=== PATIENT | male | born 1990 | race Caucasian/White ===

== ENCOUNTER 2017-06-10 18:07 | Inpatient (IN) | payer OTHER ==
[2017-06-10] VITALS (9 sets, daily range): BP systolic 106–177; BP diastolic 62–106; PULSE 78–100; RESP 16–24; TEMP 97.6–99; O2SAT 96–100
[~2017-06-10] VITALS: Ht 182.9 cm; Wt 133.2 kg
--- NOTE | 2017-06-10 18:29 | PD ---
HPI Chief Complaint: OD/ Ingestion Time Seen by Provider: 18:14 Travel History International Travel<30 days: No Contact w/Intl Traveler<30days: No Traveled to known affect area: No History of Present Illness HPI Patient is a 26-year-old male who presents the emergency room with his twin brother for evaluation of suicide attempt. Patient reports that he is very depressed, reports that his is requesting a divorce. Patient reports that he tried to commit suicide yesterday by ingesting 100 tabs of 500 mg acetaminophen. Patient reports that he took is 100 tabs around 10 AM yesterday. Patient reports that today, around 2 PM, he took another 100 tabs of the 500 mg of acetaminophen. After he took these medications, he called his brother as he was not feeling well. Patient reports that he feels nauseous and regrets taking the Tylenol. Patient reports that he does not want to at this time and does want help. Patient denies any history of suicidal attempts in the past, patient denies any use of drugs or alcohol. Patient reports no past medical history. PFSH Past Medical History Medical History: Denies Significant Hx Diminished Hearing: No Past Surgical History Surgical History: No Previous Surgery Social History Alcohol Use: No Tobacco Use: No Substance Use: No Allergies-Medications (Allergen,Severity, Reaction): Coded Allergies: codeine (Verified Allergy, Severe, throat sweling, hallucinations, 06/10/17 ) Reported Meds & Prescriptions Reported Meds & Active Scripts Active No Active Prescriptions or Reported Medications Review of Systems General / Constitutional: No: Fever Eyes: No: Visual changes HENT: No: Headaches Cardiovascular: No: Chest Pain or Discomfort Respiratory: No: Shortness of Breath Gastrointestinal: No: Abdominal Pain Genitourinary: No: Dysuria Musculoskeletal: No: Pain Skin: No Rash Neurologic: No: Weakness Psychiatric: Positive: Depression, Suicidal Ideations, No: Substance Abuse, Homicidal Ideation Endocrine: No: Polydipsia Hematologic/Lymphatic: No: Easy Bruising Physical Exam Narrative GENERAL: Moderate distress SKIN: Focused skin assessment warm/dry. HEAD: Atraumatic. Normocephalic. EYES: Pupils equal and round. No scleral icterus. No injection or drainage. ENT: No nasal bleeding or discharge. Mucous membranes pink and moist. NECK: Trachea midline. No JVD. CARDIOVASCULAR: Regular rate and rhythm. No murmur appreciated. RESPIRATORY: No accessory muscle use. Clear to auscultation. Breath sounds equal bilaterally. GASTROINTESTINAL: Abdomen soft, diffusely tender with no peritoneal signs, nondistended. Hepatic and splenic margins not palpable. MUSCULOSKELETAL: No obvious deformities. No clubbing. No cyanosis. No edema. NEUROLOGICAL: Awake and alert. No obvious cranial nerve deficits. Motor grossly within normal limits. Normal speech. PSYCHIATRIC: anxious mood and affect; insight and judgment normal. Data Data Last Documented VS Vital Signs Date Time Temp Pulse Resp B/P (MAP) Pulse Ox O2 Delivery O2 Flow Rate FiO2 06/10/17 19:12 100 16 177/93 (121) 99 Room Air 06/10/17 18:08 99.0 Orders Orders Complete Blood Count With Diff (06/10/17 18:19) Comprehensive Metabolic Panel (06/10/17 18:19) Thyroid Stimulating Hormone (06/10/17 18:19) Electrocardiogram (06/10/17 18:19) Oximetry (06/10/17 18:19) Iv Access Insert/Monitor (06/10/17 18:19) Ecg Monitoring (06/10/17 18:19) Psych Screen (06/10/17 18:19) Sodium Chloride 0.9% Flush (Ns Flush) (06/10/17 18:30) Drug Screen, Random Urine (06/10/17 18:19) Alcohol (Ethanol) (06/10/17 18:19) Salicylates (Aspirin) (06/10/17 18:19) Tylenol (Acetaminophen) (06/10/17 18:19) Ondansetron Inj (Zofran Inj) (06/10/17 18:30) Sodium Chlor 0.9% 1000 Ml Inj (Ns 1000 M (06/10/17 18:30) Acetylcysteine Inj (Acetadote Inj) (06/10/17 18:30) Acetylcysteine Inj (Acetadote Inj) (06/10/17 19:30) Acetylcysteine Inj (Acetadote Inj) (06/10/17 23:30) Prothrombin Time / Inr (Pt) (06/10/17 18:42) Act Partial Throm Time (Ptt) (06/10/17 18:42) Admit Order (Ed Use Only) (06/10/17 19:45) ^ Sitter (06/10/17 19:46) Admit To Inpatient (06/10/17 ) Code Status (06/10/17 19:44) Vital Signs (Adult) MERRY.Q1H (06/10/17 19:44) Activity Bed Rest (06/10/17 19:44) Elevate Head Of Bed (06/10/17 19:44) Bedside Glucose MERRY.BGM (06/10/17 19:44) Diet Npo (06/11/17 Breakfast) Dext 5%-Nacl 0.45% 1000 Ml Inj (D5w-1/2 (06/10/17 20:00) Sodium Chloride 0.9% Flush (Ns Flush) (06/10/17 19:45) Sodium Chloride 0.9% Flush (Ns Flush) (06/10/17 21:00) Pantoprazole Inj (Protonix Inj) (06/10/17 19:45) Ondansetron Inj (Zofran Inj) (06/10/17 19:45) Metoclopramide Inj (Reglan Inj) (06/10/17 19:45) Albuterol-Ipratropium Neb (Duoneb Neb) (06/10/17 19:45) Resp Oxygen Olaf C Titrat 1-4 L (06/10/17 ) Consult Gastroenterology (06/10/17 ) Health Management Consultant / Telemetry MERRY.Q8H (06/10/17 19:44) Scd Bilateral/Knee High MERRY.BID (06/10/17 19:44) ^ Initiate Protocol (06/10/17 19:44) Instruction (06/10/17 19:44) Nursing Information ([facility] [place] Nursing Inform (06/10/17 19:45) Chlorhexidine 2% Cloth (Chlorhexidine 2% (06/11/17 04:00) Chlorhexidine 2% Cloth (Chlorhexidine 2% (06/10/17 19:45) Mrsa Pcr Surveillance (06/10/17 19:44) Magnesium Hydroxide Liq (Milk Of Magnesi (06/10/17 19:45) Sennosides (Senokot) (06/10/17 19:45) Bisacodyl Supp (Dulcolax Supp) (06/10/17 19:45) Lactulose Liq (Lactulose Liq) (06/10/17 19:45) Inpatient Certification (06/10/17 ) Comprehensive Metabolic Panel (06/10/17 23:30) Comprehensive Metabolic Panel (06/11/17 05:30) Comprehensive Metabolic Panel (06/11/17 11:30) Comprehensive Metabolic Panel (06/11/17 17:30) Comprehensive Metabolic Panel (06/11/17 23:30) Comprehensive Metabolic Panel (06/12/17 05:30) Comprehensive Metabolic Panel (06/12/17 11:30) Comprehensive Metabolic Panel (06/12/17 17:30) Lactic Acid (06/10/17 23:30) Lactic Acid (06/11/17 05:30) Lactic Acid (06/11/17 11:30) Lactic Acid (06/11/17 17:30) Lactic Acid (06/11/17 23:30) Lactic Acid (06/12/17 05:30) Lactic Acid (06/12/17 11:30) Lactic Acid (06/12/17 17:30) Complete Blood Count With Diff (06/11/17 05:30) Complete Blood Count With Diff (06/12/17 05:30) Complete Blood Count With Diff (06/13/17 05:30) Complete Blood Count With Diff (06/14/17 05:30) Prothrombin Time / Inr (Pt) (06/10/17 23:30) Prothrombin Time / Inr (Pt) (06/11/17 05:30) Prothrombin Time / Inr (Pt) (06/11/17 11:30) Prothrombin Time / Inr (Pt) (06/11/17 17:30) Magnesium (Mg) (06/11/17 06:00) Phosphorus (Po4) (06/11/17 06:00) Labs Laboratory Tests Test 06/10/17 18:30 06/10/17 20:00 White Blood Count 12.4 TH/MM3 Red Blood Count 5.51 MIL/MM3 Hemoglobin 15.7 GM/DL Hematocrit 45.8 % Mean Corpuscular Volume 83.1 FL Mean Corpuscular Hemoglobin 28.5 PG Mean Corpuscular Hemoglobin Concent 34.3 % Red Cell Distribution Width 13.3 % Platelet Count 248 TH/MM3 Mean Platelet Volume 9.2 FL Neutrophils (%) (Auto) 82.6 % Lymphocytes (%) (Auto) 14.2 % Monocytes (%) (Auto) 1.4 % Eosinophils (%) (Auto) 0.4 % Basophils (%) (Auto) 1.4 % Neutrophils # (Auto) 10.2 TH/MM3 Lymphocytes # (Auto) 1.8 TH/MM3 Monocytes # (Auto) 0.2 TH/MM3 Eosinophils # (Auto) 0.0 TH/MM3 Basophils # (Auto) 0.2 TH/MM3 CBC Comment DIFF FINAL Differential Comment Prothrombin Time 18.8 SEC Prothromb Time International Ratio 1.9 RATIO Activated Partial Thromboplast Time 26.9 SEC Blood Urea Nitrogen 11 MG/DL Creatinine 0.92 MG/DL Random Glucose 117 MG/DL Total Protein 7.5 GM/DL Albumin 3.7 GM/DL Calcium Level 8.7 MG/DL Alkaline Phosphatase 76 U/L Aspartate Amino Transf (AST/SGOT) 407 U/L Alanine Aminotransferase (ALT/SGPT) 480 U/L Total Bilirubin 0.8 MG/DL Sodium Level 138 MEQ/L Potassium Level 3.7 MEQ/L Chloride Level 107 MEQ/L Carbon Dioxide Level 22.2 MEQ/L Anion Gap 9 MEQ/L Estimat Glomerular Filtration Rate 101 ML/MIN Thyroid Stimulating Hormone 3rd Gen 0.754 uIU/ML Salicylates Level LESS THAN 1.7 MG/DL Acetaminophen Level 198.0 MCG/ML Ethyl Alcohol Level LESS THAN 3 MG/DL MDM Medical Decision Making Medical Screen Exam Complete: Yes Emergency Medical Condition: Yes Medical Record Reviewed: Yes Interpretation(s) EKG at 1851: NSR at 80bpm, qt/qtc: 379/415, nonspecific t wave changes Vital Signs Date Time Temp Pulse Resp B/P (MAP) Pulse Ox O2 Delivery O2 Flow Rate FiO2 06/10/17 18:17 16 98 Room Air 06/10/17 18:08 99.0 99 16 155/106 (122) 98 Differential Diagnosis liver failure secondary to acetaminophen overdose, depression, si Narrative Course 26-year-old male who presents to emergency room after a suicide attempt yesterday as well as today. Patient took 100 tabs of 500 mg acetaminophen around 10 AM yesterday and took another 100 tabs of 500 mg of acetaminophen today around 2 PM. Patient reports abdominal pain with nausea, patient is scared and "does not want to anymore." During the course of the patients emergency department visit, the patients history, examination, and differential diagnosis were reviewed with the patient. The patient was placed on a property assessment monitor with oximetry and frequent blood pressure monitoring. The patient had an IV access obtained and blood work sent for analysis. The patient was initially provided IVF, IV zofran, N-acetylcysteine call made to poison control to review case (talked to kam) - agrees with plan of care for NAC The patients laboratory studies were reviewed and remarkable for Laboratory Tests Test 06/10/17 18:30 White Blood Count 12.4 TH/MM3 (4.0-11.0) Red Blood Count 5.51 MIL/MM3 (4.50-5.90) Hemoglobin 15.7 GM/DL (13.0-17.0) Hematocrit 45.8 % (39.0-51.0) Mean Corpuscular Volume 83.1 FL (80.0-100.0) Mean Corpuscular Hemoglobin 28.5 PG (27.0-34.0) Mean Corpuscular Hemoglobin Concent 34.3 % (32.0-36.0) Red Cell Distribution Width 13.3 % (11.6-17.2) Platelet Count 248 TH/MM3 (150-450) Mean Platelet Volume 9.2 FL (7.0-11.0) Neutrophils (%) (Auto) 82.6 % (16.0-70.0) Lymphocytes (%) (Auto) 14.2 % (9.0-44.0) Monocytes (%) (Auto) 1.4 % (0.0-8.0) Eosinophils (%) (Auto) 0.4 % (0.0-4.0) Basophils (%) (Auto) 1.4 % (0.0-2.0) Neutrophils # (Auto) 10.2 TH/MM3 (1.8-7.7) Lymphocytes # (Auto) 1.8 TH/MM3 (1.0-4.8) Monocytes # (Auto) 0.2 TH/MM3 (0-0.9) Eosinophils # (Auto) 0.0 TH/MM3 (0-0.4) Basophils # (Auto) 0.2 TH/MM3 (0-0.2) CBC Comment DIFF FINAL Differential Comment Prothrombin Time 18.8 SEC (9.8-11.6) Prothromb Time International Ratio 1.9 RATIO Activated Partial Thromboplast Time 26.9 SEC (24.3-30.1) Blood Urea Nitrogen 11 MG/DL (7-18) Creatinine 0.92 MG/DL (0.60-1.30) Random Glucose 117 MG/DL (74-106) Total Protein 7.5 GM/DL (6.4-8.2) Albumin 3.7 GM/DL (3.4-5.0) Calcium Level 8.7 MG/DL (8.5-10.1) Alkaline Phosphatase 76 U/L (45-117) Aspartate Amino Transf (AST/SGOT) 407 U/L (15-37) Alanine Aminotransferase (ALT/SGPT) 480 U/L (12-78) Total Bilirubin 0.8 MG/DL (0.2-1.0) Sodium Level 138 MEQ/L (136-145) Potassium Level 3.7 MEQ/L (3.5-5.1) Chloride Level 107 MEQ/L (98-107) Carbon Dioxide Level 22.2 MEQ/L (21.0-32.0) Anion Gap 9 MEQ/L (5-15) Estimat Glomerular Filtration Rate 101 ML/MIN (>89) Thyroid Stimulating Hormone 3rd Gen 0.754 uIU/ML (0.358-3.740) Ethyl Alcohol Level LESS THAN 3 MG/DL (0-5) Case reviewed with Dr. rosales who accepts pt to service Critical Care Narrative Aggregate critical care time was 30 minutes. Time to perform other separately billable procedures was not included in the critical care time. My time did not include minutes spent treating any other patients simultaneously or on activities that did not directly contribute to the patient's treatment. The services I provided to this patient were to treat and/or prevent clinically significant deterioration that could result in: , decompensation, deterioration I provided critical care services requiring my management, as noted below: Chart data review, documentation time, medication orders and management, vital sign assessments/reviewing monitor data, ordering and reviewing lab tests, ordering and interpreting/reviewing x-rays and diagnostic studies, care of the patient and discussion of the patient with the admitting physicians. Diagnosis Primary Impression: Intentional acetaminophen overdose Qualified Codes: T39.1X2A - Poisoning by 4-aminophenol derivatives, intentional self-harm, initial encounter Additional Impression: Suicidal behavior Qualified Codes: T14.91XA - Suicide attempt, initial encounter Admitting Information Admitting Physician Requests: Admit Scripts No Active Prescriptions or Reported Meds Berta Jni DO Jun 10, 2017 18:29
[2017-06-10] MEDS ORDERED: SODIUM CHLORIDE 0.9% FLUSH 10 ML FLUSH IVF PRN (18:30)
[2017-06-10] MEDS ORDERED: ACETYLCYSTEINE INJ 15,000 MG in DEXTROSE 5% IN WATER INJ 200 ML IV ONE ×2 (18:30)
[2017-06-10] MEDS ORDERED: SODIUM CHLOR 0.9% 1000 ML INJ 1,000 ML IV ONE (18:30)
[2017-06-10] MEDS ORDERED: ONDANSETRON HCL 4 MG/2 ML VIAL IV PUSH ONE (18:30)
[2017-06-10 18:43] LABS: AUTOMATED NEUTROPHIL # 10.2 TH/MM3 (1.8-7.7); BASOPHIL # 0.2 TH/MM3 (0-0.2); BASOPHIL % 1.4 % (0.0-2.0); EOSINOPHIL % 0.4 % (0.0-4.0); HEMATOCRIT 45.8 % (39.0-51.0); HEMOGLOBIN 15.7 GM/DL (13.0-17.0); LYMPH % 14.2 % (9.0-44.0); LYMPHOCYTE # 1.8 TH/MM3 (1.0-4.8); MEAN CELL VOLUME 83.1 FL (80.0-100.0); MEAN CORPUSCULAR HEMOGLOBIN 28.5 PG (27.0-34.0); MEAN CORPUSCULAR HGB CONC 34.3 % (32.0-36.0); MEAN PLATELET VOLUME 9.2 FL (7.0-11.0); MONO % 1.4 % (0.0-8.0); MONOCYTE # 0.2 TH/MM3 (0-0.9); NEUT % 82.6 % (16.0-70.0); PLATELET COUNT 248 TH/MM3 (150-450); RED BLOOD COUNT 5.51 MIL/MM3 (4.50-5.90); RED CELL DISTRIBUTION WIDTH 13.3 % (11.6-17.2); WHITE BLOOD COUNT 12.4 TH/MM3 (4.0-11.0)
[2017-06-10 18:53] LABS: CHLORIDE 107 MEQ/L (98-107); SODIUM (NA) 138 MEQ/L (136-145)
[2017-06-10 18:57] LABS: ALBUMIN 3.7 GM/DL (3.4-5.0); BICARBONATE 22.2 MEQ/L (21.0-32.0); BLOOD UREA NITROGEN 11 MG/DL (7-18); CALCIUM 8.7 MG/DL (8.5-10.1); GLUCOSE,RANDOM 117 MG/DL (74-106)
[2017-06-10 19:00] LABS: ALT (GPT) 480 U/L (12-78); AST (GOT) 407 U/L (15-37); CREATININE 0.92 MG/DL (0.60-1.30); GLOMERULAR FILTRATION RATE 101 ML/MIN (>89)
[2017-06-10 19:02] LABS: TOTAL BILIRUBIN ADULT 0.8 MG/DL (0.2-1.0); TOTAL PROTEIN 7.5 GM/DL (6.4-8.2)
[2017-06-10 19:03] LABS: ALKALINE PHOSPHATASE 76 U/L (45-117); INTERNATIONAL NORMALIZED RATIO 1.9 RATIO; PROTHROMBIN TIME - PATIENT 18.8 SEC (9.8-11.6)
[2017-06-10] MEDS ORDERED: ACETYLCYSTEINE INJ 5,000 MG in DEXTROSE 5% IN WATE 500 ML INJ 500 ML IV ONE ×2 (19:30)
[2017-06-10] MEDS ORDERED: MAGNESIUM HYDROXIDE SUSP 30 ML CUP PO PRN (19:45)
[2017-06-10] MEDS ORDERED: ONDANSETRON HCL 4 MG/2 ML VIAL IV PUSH PRN (19:45)
[2017-06-10] MEDS ORDERED: CHLORHEXIDINE GLUCONATE 2 % 1 PACK (2 CLOTHS) TOP PRN (19:45)
[2017-06-10] MEDS ORDERED: RESP: ALBUTEROL 2.5 MG/IPRATROPIUM 0.5 MG NEB (PRN) INH (19:45)
[2017-06-10] MEDS ORDERED: BISACODYL 10 MG SUPP RECTAL PRN (19:45)
[2017-06-10] MEDS ORDERED: METOCLOPRAMIDE HCL 10 MG/2 ML VIAL IV PUSH PRN (19:45)
[2017-06-10] MEDS ORDERED: SODIUM CHLORIDE 0.9% FLUSH 10 ML FLUSH IV FLUSH PRN (19:45)
[2017-06-10] MEDS ORDERED: NURSING INFORMATION XX SCH (19:45)
[2017-06-10] MEDS ORDERED: SENNOSIDES 8.6 MG TAB PO PRN (19:45)
[2017-06-10] MEDS ORDERED: LACTULOSE SYRUP 20 GM/30 ML CUP PO PRN (19:45)
[2017-06-10] MEDS: PANTOPRAZOLE SODIUM 40 MG VIAL IV PUSH SCH (20:50)
[2017-06-10] MEDS: DEXT 5%-NACL 0.45% 1000 ML INJ 1,000 ML IV SCH (20:51)
[2017-06-10] MEDS: SODIUM CHLORIDE 0.9% FLUSH 10 ML FLUSH IV FLUSH SCH (21:00)
[2017-06-10] MEDS ORDERED: LORazepam 2 MG/ML VIAL IV PUSH ONE (21:30)
[2017-06-10 22:48] LABS: CHLORIDE 105 MEQ/L (98-107); SODIUM (NA) 140 MEQ/L (136-145)
[2017-06-10 22:51] LABS: CALCIUM 8.2 MG/DL (8.5-10.1)
[2017-06-10 22:52] LABS: ALBUMIN 3.4 GM/DL (3.4-5.0); BLOOD UREA NITROGEN 8 MG/DL (7-18); GLUCOSE,RANDOM 166 MG/DL (74-106)
[2017-06-10 22:55] LABS: ALT (GPT) 663 U/L (12-78); AST (GOT) 608 U/L (15-37); CREATININE 0.81 MG/DL (0.60-1.30); GLOMERULAR FILTRATION RATE 117 ML/MIN (>89)
[2017-06-10 22:57] LABS: TOTAL BILIRUBIN ADULT 0.8 MG/DL (0.2-1.0); TOTAL PROTEIN 7.2 GM/DL (6.4-8.2)
[2017-06-10 22:58] LABS: ALKALINE PHOSPHATASE 66 U/L (45-117); INTERNATIONAL NORMALIZED RATIO 1.8 RATIO; PROTHROMBIN TIME - PATIENT 18.5 SEC (9.8-11.6)
[2017-06-10] MEDS ORDERED: ACETYLCYSTEINE INJ 10,000 MG in DEXTROSE 5% IN WATE 1000ML INJ 1,000 ML IV ONE ×2 (23:30)
[2017-06-11] VITALS (24 sets, daily range): BP systolic 111–152; BP diastolic 60–90; PULSE 72–106; RESP 13–31; TEMP 98.4–99.2; O2SAT 95–100
[2017-06-11] MEDS ORDERED: POTASSIUM CHLORIDE 20 MEQ CONTROLLED RELEASE TAB PO SCH (00:30)
[2017-06-11] MEDS ORDERED: PHYTONADIONE 10 MG/D5W 50 ML IV ONE ×2 (00:45)
[2017-06-11] MEDS: CHLORHEXIDINE GLUCONATE 2 % 1 PACK (2 CLOTHS) TOP SCH (01:03)
[2017-06-11 04:59] LABS: AUTOMATED NEUTROPHIL # 9.6 TH/MM3 (1.8-7.7); BASOPHIL # 0.1 TH/MM3 (0-0.2); BASOPHIL % 0.5 % (0.0-2.0); EOSINOPHIL % 0.3 % (0.0-4.0); HEMATOCRIT 43.8 % (39.0-51.0); HEMOGLOBIN 14.7 GM/DL (13.0-17.0); LYMPH % 10.4 % (9.0-44.0); LYMPHOCYTE # 1.1 TH/MM3 (1.0-4.8); MEAN CELL VOLUME 83.9 FL (80.0-100.0); MEAN CORPUSCULAR HEMOGLOBIN 28.1 PG (27.0-34.0); MEAN CORPUSCULAR HGB CONC 33.5 % (32.0-36.0); MEAN PLATELET VOLUME 8.6 FL (7.0-11.0); MONO % 1.3 % (0.0-8.0); MONOCYTE # 0.1 TH/MM3 (0-0.9); NEUT % 87.5 % (16.0-70.0); PLATELET COUNT 184 TH/MM3 (150-450); RED BLOOD COUNT 5.23 MIL/MM3 (4.50-5.90); RED CELL DISTRIBUTION WIDTH 12.8 % (11.6-17.2); WHITE BLOOD COUNT 10.9 TH/MM3 (4.0-11.0)
[2017-06-11 05:07] LABS: CHLORIDE 107 MEQ/L (98-107); SODIUM (NA) 139 MEQ/L (136-145)
[2017-06-11 05:10] LABS: INTERNATIONAL NORMALIZED RATIO 1.7 RATIO; PROTHROMBIN TIME - PATIENT 17.2 SEC (9.8-11.6)
[2017-06-11 05:11] LABS: CALCIUM 8.6 MG/DL (8.5-10.1)
[2017-06-11 05:12] LABS: ALBUMIN 3.2 GM/DL (3.4-5.0); BICARBONATE 23.2 MEQ/L (21.0-32.0); BLOOD UREA NITROGEN 6 MG/DL (7-18); GLUCOSE,RANDOM 151 MG/DL (74-106)
[2017-06-11 05:15] LABS: CREATININE 0.66 MG/DL (0.60-1.30); GLOMERULAR FILTRATION RATE 148 ML/MIN (>89)
[2017-06-11 05:17] LABS: TOTAL BILIRUBIN ADULT 0.9 MG/DL (0.2-1.0)
[2017-06-11 05:18] LABS: ALKALINE PHOSPHATASE 64 U/L (45-117); TOTAL PROTEIN 6.8 GM/DL (6.4-8.2)
[2017-06-11 05:32] LABS: ALT (GPT) 1370 U/L (12-78); AST (GOT) 1432 U/L (15-37)
[2017-06-11] MEDS: DEXT 5%-NACL 0.45% 1000 ML INJ 1,000 ML IV SCH ×2 (06:37→17:03)
[2017-06-11] MEDS ORDERED: POTASSIUM PHOSPHATE MONOBASIC 500 MG TAB PO/TUBE PRN (07:30)
[2017-06-11] MEDS ORDERED: MAGNESIUM SULFATE INJ 2 GM in SODIUM CHLORIDE 0.9% INJ 96 ML IV PRN (07:30)
[2017-06-11] MEDS ORDERED: POTASSIUM CHLOR 20 MEQ PREMIX 100 ML IV PRN ×2 (07:30)
[2017-06-11] MEDS ORDERED: POTASSIUM CHLOR 40 MEQ PREMIX 100 ML IV PRN ×2 (07:30)
[2017-06-11] MEDS ORDERED: MAGNESIUM OXIDE 400 MG TAB PO PRN (07:30)
[2017-06-11] MEDS ORDERED: POTASSIUM PHOSPHATE MONOBASIC 500 MG TAB PO PRN (07:30)
[2017-06-11] MEDS ORDERED: MAGNESIUM SULFATE INJ 4 GM in SODIUM CHLORIDE 0.9% INJ 92 ML IV PRN (07:30)
[2017-06-11] MEDS ORDERED: POTASSIUM CHLORIDE 25 MEQ EFFERVESCENT TAB PO PRN (07:30)
[2017-06-11] MEDS ORDERED: POTASSIUM PHOSPHATE INJ 30 MMOL in SODIUM CHLOR 0.9% 250 ML INJ 250 ML IV PRN (07:30)
[2017-06-11] MEDS ORDERED: SODIUM PHOSPHATE INJ 30 MMOL in SODIUM CHLOR 0.9% 250 ML INJ 240 ML IV PRN (07:30)
--- NOTE | 2017-06-11 07:55 | HHI.HP ---
[facility] Service Critical Care Medicine Primary Care Physician Unknown Admission Diagnosis Acetaminophen overdose Diagnosis: Chief Complaint: intentional tylenol overdose Travel History International Travel<30 Days: No Contact w/Intl Traveler <30 Da: No Traveled to Known Affected Are: No History of Present Illness This is a 26yM with no significant past medical history who presented to the emergency department with abdominal pain after intentional tylenol overdose attempt. he states that he feels depressed, endorses suicidal ideation. He states he took 100 tabs of 500mg tylenol around 10am 06/09, and then an additional 100 tabs at 1400 on 06/10. He endorses generalized crampy abdominal pain. denies constipation, diarrhea, blood in stool or hematemesis. states he has never had any prior suicide attempts. In the emergency department, his LFTs were elevated and have uptrended. his INR was 1.9 initially. MELD is currently 12. tylenol level was elevated at 198 and repeat is currently pending. Review of Systems Constitutional: DENIES: Diaphoretic episodes, Fatigue, Fever, Chills Respiratory: DENIES: Cough, Wheezing, Hemoptysis, Sputum production, Shortness of breath Cardiovascular: DENIES: Chest pain, Palpitations, Syncope, Dyspnea on Exertion , Lower Extremity Edema Gastrointestinal: COMPLAINS OF: Abdominal pain, DENIES: Black stools, Bloody stools, Constipation, Diarrhea, Nausea, Vomiting Genitourinary: DENIES: Urinary frequency Musculoskeletal: DENIES: Muscle aches Neurologic: DENIES: Abnormal gait, Headache Psychiatric: COMPLAINS OF: Depression, Suicidal Ideation, DENIES: Anxiety, Confusion, Mood changes, Hallucinations, Agitation, Homicidal Ideation, Delusions Past Family Social History Allergies: Coded Allergies: codeine (Verified Allergy, Severe, throat sweling, hallucinations, 06/10/17 ) Past Medical History none. Past Surgical History none. Reported Medications none. Active Ordered Medications see MAR Family History no family history of mental illness or liver disease. Social History denies tob, etoh, other drugs. Physical Exam Vital Signs Vital Signs Date Time Temp Pulse Resp B/P (MAP) Pulse Ox O2 Delivery O2 Flow Rate FiO2 06/11/17 06:00 96 19 142/82 (102) 100 06/11/17 06:00 96 06/11/17 05:00 82 23 134/68 (90) 99 06/11/17 04:00 80 06/11/17 04:00 98.9 80 24 128/64 (85) 96 06/11/17 03:00 80 25 119/63 (81) 97 06/11/17 02:00 78 20 123/67 (85) 97 06/11/17 02:00 78 06/11/17 01:00 82 06/11/17 01:00 82 13 133/75 (94) 96 06/11/17 00:00 72 06/10/17 23:45 84 21 106/62 (77) 96 06/10/17 22:15 97.6 90 24 160/85 (110) 98 06/10/17 22:00 78 06/10/17 21:31 98.7 75 18 99 06/10/17 20:49 86 18 175/98 (123) 100 Room Air 06/10/17 19:12 100 16 177/93 (121) 99 Room Air 06/10/17 18:43 90 16 164/91 (115) 97 Room Air 06/10/17 18:28 16 98 Room Air 06/10/17 18:17 16 98 Room Air 06/10/17 18:08 99.0 99 16 155/106 (122) 98 Physical Exam gen: young male, lying in bed, in distress due to abdominal pain heent: nc. at. perrl. mmm. neck: no jvd. trachea midline. chest: equal chest rise. room air. cv: normal rate, regular rhythm. sinus. abd: soft, generalized tenderness to palpation diffusely. no hepatosplenomegaly. no guarding. no rebound. nondistended. extr: warm, well perfused. no clubbing, cyanosis. no edema. neuro: RASS 0. GCS 15. follows commands. no focal deficits. Laboratory Laboratory Tests Test 06/10/17 18:30 06/10/17 20:00 06/10/17 22:15 06/10/17 22:35 White Blood Count 12.4 Red Blood Count 5.51 Hemoglobin 15.7 Hematocrit 45.8 Mean Corpuscular Volume 83.1 Mean Corpuscular Hemoglobin 28.5 Mean Corpuscular Hemoglobin Concent 34.3 Red Cell Distribution Width 13.3 Platelet Count 248 Mean Platelet Volume 9.2 Neutrophils (%) (Auto) 82.6 Lymphocytes (%) (Auto) 14.2 Monocytes (%) (Auto) 1.4 Eosinophils (%) (Auto) 0.4 Basophils (%) (Auto) 1.4 Neutrophils # (Auto) 10.2 Lymphocytes # (Auto) 1.8 Monocytes # (Auto) 0.2 Eosinophils # (Auto) 0.0 Basophils # (Auto) 0.2 CBC Comment DIFF FINAL Differential Comment Prothrombin Time 18.8 18.5 Prothromb Time International Ratio 1.9 1.8 Activated Partial Thromboplast Time 26.9 Blood Urea Nitrogen 11 8 Creatinine 0.92 0.81 Random Glucose 117 166 Total Protein 7.5 7.2 Albumin 3.7 3.4 Calcium Level 8.7 8.2 Alkaline Phosphatase 76 66 Aspartate Amino Transf (AST/SGOT) 407 608 Alanine Aminotransferase (ALT/SGPT) 480 663 Total Bilirubin 0.8 0.8 Sodium Level 138 140 Potassium Level 3.7 3.2 Chloride Level 107 105 Carbon Dioxide Level 22.2 23.0 Anion Gap 9 12 Estimat Glomerular Filtration Rate 101 117 Thyroid Stimulating Hormone 3rd Gen 0.754 Salicylates Level LESS THAN 1.7 Acetaminophen Level 198.0 Ethyl Alcohol Level LESS THAN 3 Nasal Screen MRSA (PCR) MRSA NOT DETECTED Urine Opiates Screen NEG Urine Barbiturates Screen NEG Urine Amphetamines Screen NEG Urine Benzodiazepines Screen NEG Urine Cocaine Screen NEG Urine Cannabinoids Screen NEG Lactic Acid Level 1.6 Test 06/11/17 04:27 White Blood Count 10.9 Red Blood Count 5.23 Hemoglobin 14.7 Hematocrit 43.8 Mean Corpuscular Volume 83.9 Mean Corpuscular Hemoglobin 28.1 Mean Corpuscular Hemoglobin Concent 33.5 Red Cell Distribution Width 12.8 Platelet Count 184 Mean Platelet Volume 8.6 Neutrophils (%) (Auto) 87.5 Lymphocytes (%) (Auto) 10.4 Monocytes (%) (Auto) 1.3 Eosinophils (%) (Auto) 0.3 Basophils (%) (Auto) 0.5 Neutrophils # (Auto) 9.6 Lymphocytes # (Auto) 1.1 Monocytes # (Auto) 0.1 Eosinophils # (Auto) 0.0 Basophils # (Auto) 0.1 CBC Comment DIFF FINAL Differential Comment Prothrombin Time 17.2 Prothromb Time International Ratio 1.7 Blood Urea Nitrogen 6 Creatinine 0.66 Random Glucose 151 Total Protein 6.8 Albumin 3.2 Calcium Level 8.6 Alkaline Phosphatase 64 Aspartate Amino Transf (AST/SGOT) 1432 Alanine Aminotransferase (ALT/SGPT) 1370 Total Bilirubin 0.9 Sodium Level 139 Potassium Level 3.3 Chloride Level 107 Carbon Dioxide Level 23.2 Anion Gap 9 Estimat Glomerular Filtration Rate 148 Lactic Acid Level 1.1 Result Diagram: 06/11/1742606/11/17426 Caprini VTE Risk Assessment Caprini VTE Risk Assessment: Mod/High Risk (score >= 2) Caprini Risk Assessment Model Point Value = 1 Point Value = 2 Point Value = 3 Point Value = 5 Age 41-60 Minor surgery BMI > 25 kg/m2 Swollen legs Varicose veins or History of unexplained or recurrent spontaneous Oral contraceptives or hormone replacement Sepsis (< 1 month) Serious lung disease, including pneumonia (< 1 month) Abnormal pulmonary function Acute myocardial infarction Congestive heart failure (< 1 month) History of inflammatory bowel disease Medical patient at bed rest Age 61-74 Arthroscopic surgery Major open surgery (> 45 min) Laparoscopic surgery (> 45 min) Malignancy Confined to bed (> 72 hours) Immobilizing plaster cast Central venous access Age >= 75 History of VTE Family history of VTE Factor V Leiden Prothrombin [id number] Lupus anticoagulant Anticardiolipin antibodies Elevated serum homocysteine Heparin-induced thrombocytopenia Other congenital or acquired thrombophilia Stroke (< 1 month) Elective arthroplasty Hip, pelvis, or leg fracture Acute spinal cord injury (< 1 month) Prophylaxis Regimen Total Risk Factor Score Risk Level Prophylaxis Regimen 0-1 Low Early ambulation 2 Moderate Order ONE of the following: *Sequential Compression Device (SCD) *Heparin 5000 units SQ BID 3-4 Higher Order ONE of the following medications: *Heparin 5000 units SQ TID *Enoxaparin/Lovenox 40 mg SQ daily (WT < 150 kg, CrCl > 30 mL/min) *Enoxaparin/Lovenox 30 mg SQ daily (WT < 150 kg, CrCl > 10-29 mL/min) *Enoxaparin/Lovenox 30 mg SQ BID (WT < 150 kg, CrCl > 30 mL/min) AND/OR *Sequential Compression Device (SCD) 5 or more Highest Order ONE of the following medications: *Heparin 5000 units SQ TID (Preferred with Epidurals) *Enoxaparin/Lovenox 40 mg SQ daily (WT < 150 kg, CrCl > 30 mL/min) *Enoxaparin/Lovenox 30 mg SQ daily (WT < 150 kg, CrCl > 10-29 mL/min) *Enoxaparin/Lovenox 30 mg SQ BID (WT < 150 kg, CrCl > 30 mL/min) AND *Sequential Compression Device (SCD) Assessment and Plan Assessment and Plan Assessment: 26yM with intentional tylenol overdose and evidence of acute hepatic dysfunction. very critically ill with severely elevated acetaminophen level and rapidly rising LFTs. agree with admission to ICU. serial labs. frequent neuro checks and glucose checks. GI consult to follow along. poison control has been called and consulted. high risk for fulminant liver failure and . Active Problems: Suicidal Ideations Intentional Acetaminophen Overdose Acute Hepatitis Coagulopathy secondary to acute liver dysfunction Abdominal pain secondary to acute liver dysfunction Plan: - serial LFTs, coags - frequent blood glucose checks - frequent neuro checks - GI consult - psychiatry consult - Siu Act - hold pharmacologic anticoagulation given elevated INR - low threshold for transfer to transplant center if fulminant liver dysfunction develops. admit to ICU. very critically ill and high risk for worsening decompensation. Critical care time: 67 minutes, exclusive of separately billable procedures. Corey Arias MD Jun 11, 2017 07:55
[2017-06-11] MEDS: PANTOPRAZOLE SODIUM 40 MG VIAL IV PUSH SCH (08:48)
[2017-06-11] MEDS: HYDROmorphone HCL PF 2 MG/ML VIAL IV PUSH PRN ×2 (08:49→15:13)
[2017-06-11] MEDS: SODIUM CHLORIDE 0.9% FLUSH 10 ML FLUSH IV FLUSH SCH ×2 (09:00→23:12)
--- NOTE | 2017-06-11 10:49 | PD.CONS ---
History of Present Illness Service Transplant Surgery Consult Requested By Nail Puller- Dr Derek Arias Reason for Consult Tylenol overdose Primary Care Physician Unknown Diagnoses: History of Present Illness 26 yom who allegedly, due to recent family stressors ( requesting divorce), patient took 100 tablets of 500 mg tylenol tablets at around 1000 on 06/09/17. He then took another 100 tablets of 500 mg tylenol tablets around 1400 on . He then reportedly began to feel nauseaous and had crampy abd pain, regretted taking the tylenol; called his twin brother, which then led to him coming to the ED. He was admitted on 06/10/2017. , Siu acted due to suicidal ideation, and started on acetylcysteine. Mental status has remained intact (GCS 15) and abd pain improved since admit. Also remained hemodynamically stable. We were consulted this AM. Review of Systems Constitutional: COMPLAINS OF: Fatigue (feels tired currently) Eyes: COMPLAINS OF: Blurred vision (his vision seems somewhat blurry since admit.. prior to admit wore reading glasses.) Gastrointestinal: COMPLAINS OF: Abdominal pain (had crampy abd pain at admit. Has since improved.) Neurologic: COMPLAINS OF: Headache (Has a headache. the light seems to make it worse) Psychiatric: COMPLAINS OF: Depression, Suicidal Ideation Past Family Social History Allergies: Coded Allergies: codeine (Verified Allergy, Severe, throat sweling, hallucinations, 06/10/17 ) Past Medical History None.. Does take OTC prilosec for heartburn. Past Surgical History None Reported Medications Prilosec OTC for heartburn Active Ordered Medications includes actylcysteine, prn lactulose/ ativan Family History Mom has had a few CVAs in the past. Father of an LA in his 50s Social History Never smoker. Rare etoh. Denies illicit drug use Physical Exam Vital Signs Vital Signs Date Time Temp Pulse Resp B/P (MAP) Pulse Ox O2 Delivery O2 Flow Rate FiO2 06/11/17 09:56 12 06/11/17 06:00 96 19 142/82 (102) 100 06/11/17 06:00 96 06/11/17 05:00 82 23 134/68 (90) 99 06/11/17 04:00 80 06/11/17 04:00 98.9 80 24 128/64 (85) 96 06/11/17 03:00 80 25 119/63 (81) 97 06/11/17 02:00 78 20 123/67 (85) 97 06/11/17 02:00 78 06/11/17 01:00 82 06/11/17 01:00 82 13 133/75 (94) 96 06/11/17 00:00 72 06/10/17 23:45 84 21 106/62 (77) 96 06/10/17 22:15 97.6 90 24 160/85 (110) 98 06/10/17 22:00 78 06/10/17 21:31 98.7 75 18 99 06/10/17 20:49 86 18 175/98 (123) 100 Room Air 06/10/17 19:12 100 16 177/93 (121) 99 Room Air 06/10/17 18:43 90 16 164/91 (115) 97 Room Air 06/10/17 18:28 16 98 Room Air 06/10/17 18:17 16 98 Room Air 06/10/17 18:08 99.0 99 16 155/106 (122) 98 Physical Exam GENERAL: This is a well-nourished, well-developed patient, in no apparent distress. SKIN: No rashes, ecchymoses or lesions. Cool and dry. HEAD: Atraumatic. Normocephalic. No temporal or scalp tenderness. EYES: Pupils equal round and reactive. Extraocular motions intact. No scleral icterus. No injection or drainage. ENT: Nose without bleeding, purulent drainage or septal hematoma. Throat without erythema, tonsillar hypertrophy or exudate. Uvula midline. Airway patent. NECK: Trachea midline. No JVD or lymphadenopathy. Supple, nontender, no meningeal signs. CARDIOVASCULAR: Regular rate and rhythm without murmurs, gallops, or rubs. RESPIRATORY: Clear to auscultation. Breath sounds equal bilaterally. No wheezes , rales, or rhonchi. GASTROINTESTINAL: Abdomen soft, non-tender at time of my exam, nondistended. No hepato-splenomegaly, or palpable masses. No guarding. No inguinal hernias. EDI ARCHITECT/RECT: No inguinal hernias. No testicular masses MUSCULOSKELETAL: Extremities without clubbing, cyanosis, or edema. No joint tenderness, effusion, or edema noted. No calf tenderness. Negative Homans sign bilaterally.Palpable femoral/DP/PT pulses bilaterally. NEUROLOGICAL: Awake and alert. Cranial nerves II through XII intact. Motor and sensory grossly within normal limits. Five out of 5 muscle strength in all muscle groups. Normal speech. Laboratory Laboratory Tests Test 06/10/17 18:30 06/10/17 20:00 06/10/17 22:15 06/10/17 22:35 White Blood Count 12.4 Red Blood Count 5.51 Hemoglobin 15.7 Hematocrit 45.8 Mean Corpuscular Volume 83.1 Mean Corpuscular Hemoglobin 28.5 Mean Corpuscular Hemoglobin Concent 34.3 Red Cell Distribution Width 13.3 Platelet Count 248 Mean Platelet Volume 9.2 Neutrophils (%) (Auto) 82.6 Lymphocytes (%) (Auto) 14.2 Monocytes (%) (Auto) 1.4 Eosinophils (%) (Auto) 0.4 Basophils (%) (Auto) 1.4 Neutrophils # (Auto) 10.2 Lymphocytes # (Auto) 1.8 Monocytes # (Auto) 0.2 Eosinophils # (Auto) 0.0 Basophils # (Auto) 0.2 CBC Comment DIFF FINAL Differential Comment Prothrombin Time 18.8 18.5 Prothromb Time International Ratio 1.9 1.8 Activated Partial Thromboplast Time 26.9 Blood Urea Nitrogen 11 8 Creatinine 0.92 0.81 Random Glucose 117 166 Total Protein 7.5 7.2 Albumin 3.7 3.4 Calcium Level 8.7 8.2 Alkaline Phosphatase 76 66 Aspartate Amino Transf (AST/SGOT) 407 608 Alanine Aminotransferase (ALT/SGPT) 480 663 Total Bilirubin 0.8 0.8 Sodium Level 138 140 Potassium Level 3.7 3.2 Chloride Level 107 105 Carbon Dioxide Level 22.2 23.0 Anion Gap 9 12 Estimat Glomerular Filtration Rate 101 117 Thyroid Stimulating Hormone 3rd Gen 0.754 Salicylates Level LESS THAN 1.7 Acetaminophen Level 198.0 Ethyl Alcohol Level LESS THAN 3 Nasal Screen MRSA (PCR) MRSA NOT DETECTED Urine Opiates Screen NEG Urine Barbiturates Screen NEG Urine Amphetamines Screen NEG Urine Benzodiazepines Screen NEG Urine Cocaine Screen NEG Urine Cannabinoids Screen NEG Lactic Acid Level 1.6 Test 06/11/17 04:27 White Blood Count 10.9 Red Blood Count 5.23 Hemoglobin 14.7 Hematocrit 43.8 Mean Corpuscular Volume 83.9 Mean Corpuscular Hemoglobin 28.1 Mean Corpuscular Hemoglobin Concent 33.5 Red Cell Distribution Width 12.8 Platelet Count 184 Mean Platelet Volume 8.6 Neutrophils (%) (Auto) 87.5 Lymphocytes (%) (Auto) 10.4 Monocytes (%) (Auto) 1.3 Eosinophils (%) (Auto) 0.3 Basophils (%) (Auto) 0.5 Neutrophils # (Auto) 9.6 Lymphocytes # (Auto) 1.1 Monocytes # (Auto) 0.1 Eosinophils # (Auto) 0.0 Basophils # (Auto) 0.1 CBC Comment DIFF FINAL Differential Comment Prothrombin Time 17.2 Prothromb Time International Ratio 1.7 Blood Urea Nitrogen 6 Creatinine 0.66 Random Glucose 151 Total Protein 6.8 Albumin 3.2 Calcium Level 8.6 Alkaline Phosphatase 64 Aspartate Amino Transf (AST/SGOT) 1432 Alanine Aminotransferase (ALT/SGPT) 1370 Total Bilirubin 0.9 Sodium Level 139 Potassium Level 3.3 Chloride Level 107 Carbon Dioxide Level 23.2 Anion Gap 9 Estimat Glomerular Filtration Rate 148 Lactic Acid Level 1.1 Salicylates Level LESS THAN 1.7 Acetaminophen Level 24.9 Result Diagram: 06/11/1742606/11/17426 Assessment and Plan Problem List: (1) Suicidal behavior ICD Codes: R46.89 - Other symptoms and signs involving appearance and behavior Status: Acute (2) Intentional acetaminophen overdose ICD Codes: T39.1X2A - Poisoning by 4-Aminophenol derivatives, intentional self- harm, initial encounter Status: Acute Assessment and Plan 26 yom with ingestion of two hundred 500 mg tablerts of tylenol. Currently he's mentating well, with no acidemia, INR only 1.7, good renal function, intact sodium and MELD of 12. At this point, although we do not have an ABG, to assess his arterial pH, he does not seem to have other values that would cause him to meet Mike's [place] criteria for acetaminophen toxicity. Would continue to monitor his exam and labs. We will at least follow his labs for now also and reassess linically as warranted. case d/w Dr Rajiv Niño, Liver Transplant Director. Approximately 45 minutes of ICU time spent reviewing chart, examining patient and speaking with family Problem Qualifiers (1) Suicidal behavior: Qualified Codes: T14.91XA - Suicide attempt, initial encounter (2) Intentional acetaminophen overdose: Qualified Codes: T39.1X2A - Poisoning by 4-aminophenol derivatives, intentional self-harm, initial encounter Juan J Gardner Jr., MD Jun 11, 2017 10:49
[2017-06-11 11:13] LABS: CHLORIDE 106 MEQ/L (98-107); SODIUM (NA) 137 MEQ/L (136-145)
[2017-06-11 11:16] LABS: CALCIUM 8.6 MG/DL (8.5-10.1)
[2017-06-11 11:17] LABS: ALBUMIN 3.1 GM/DL (3.4-5.0); BICARBONATE 24.9 MEQ/L (21.0-32.0); BLOOD UREA NITROGEN 4 MG/DL (7-18); GLUCOSE,RANDOM 146 MG/DL (74-106)
[2017-06-11 11:18] LABS: INTERNATIONAL NORMALIZED RATIO 1.7 RATIO; PROTHROMBIN TIME - PATIENT 17.2 SEC (9.8-11.6)
[2017-06-11 11:20] LABS: CREATININE 0.73 MG/DL (0.60-1.30); GLOMERULAR FILTRATION RATE 132 ML/MIN (>89)
[2017-06-11 11:22] LABS: TOTAL BILIRUBIN ADULT 0.7 MG/DL (0.2-1.0); TOTAL PROTEIN 6.8 GM/DL (6.4-8.2)
[2017-06-11 11:23] LABS: ALKALINE PHOSPHATASE 67 U/L (45-117)
[2017-06-11 11:28] LABS: ALT (GPT) 2583 U/L (12-78)
[2017-06-11 11:36] LABS: AST (GOT) 2385 U/L (15-37)
--- NOTE | 2017-06-11 11:47 | PD.PSY.CON ---
Provisional Diagnosis Admission Date Jun 10, 2017 at 20:04 [place] I. Adjustment disorder with depressed mood vs major depressive disorder, recurrent , severe, without psychosis [place] II. Deferred [place] III. Tylenol intoxication, acute hepatitis [place] IV. Conflicts with [place] V. 40 History of Present Illness Service Psychiatry Consult Requested By Medicine Reason for Consult Suicidal attempt by overdose Primary Care Physician Unknown HPI The patient is a 26-year-old man, domiciled with his in [place], he is but , no kids, employed, with good family and social support, no previous psychiatric history, no previous suicide attempts, no previous psychiatric hospitalizations, denies the use of alcohol and illegal drugs, no significant medical history, who allegedly, due to recent disagreement with , patient took 100 tablets of 500 mg tylenol tablets at around 1000 on 06/09/17. He then took another 100 tablets of 500 mg tylenol tablets around 1400 on 06/10/17. He then reportedly began to feel nauseous and had crampy and pain, regretted taking the tylenol; called his twin brother, which then led to him coming to the ED. He was admitted on 06/10/2017. , Siu acted due to suicidal ideation, and started on acetylcysteine. Mental status has remained intact (GCS 15) and pain improved since admit. Also remained hemodynamically stable. We were consulted this AM. he does not seem to have other values that would cause him to meet Mike's [place] criteria for acetaminophen toxicity. Would continue to monitor his exam and labs. We will at least follow his labs for now also and reassess linically as warranted. case d/ w Dr Rajiv Niño, Liver Transplant Director. Patient was consulted to psychiatry to assess suicide attempt. EMR was reviewed. Collateral information from his 2 sisters, [place] and Geno, was obtained. On psychiatric evaluation today the patient is found calm, cooperative, tearful and regretful about his recent actions. The patient reports that after his left him about a week ago he has been feeling increasingly depressed, with increased sense of hopelessness, guiltiness, worthlessness, feeling that he is a failure, with lack of motivation, poor sleep, poor appetite, constant intrusive thoughts about being a bad person with suicidal thoughts. The patient reports that he had already suicidal thought about a month ago when the problems with his started. He says that finally yesterday, after an argument with his , he got desperate and he overdosed "with intentions to ". He now regrets his actions. He is happy to be alive, I am hopeful that he can have a second opportunity in life to 5 for what he loves. The patient reports that he has an excellent family support, good friends, his sisters and parents "I just great with me". He reports that he feels like "I know that what I did was really bad, but now is done, and now I realize how important it is my life". At this moment the patient denies suicidal and homicidal ideation , he denies visual and auditory hallucinations. The patient also denies pain, distress, he does endorse nausea and some abdominal pain. The patient is fully oriented 3, logical, coherent and relevant. No gross cognitive impairment are present, no attention deficit, no fluctuation of consciousness at this moment. The patient denies the use of illegal drugs and alcohol. Review of Systems Constitutional: DENIES: Diaphoretic episodes, Fatigue, Fever, Weight gain, Weight loss, Chills, Dizziness, Change in appetite, Night Sweats Endocrine: DENIES: Heat/cold intolerance, Polydipsia, Polyuria, Polyphagia Eyes: DENIES: Blurred vision, Diplopia, Eye inflammation, Eye pain, Vision loss , Photosensitivity, Double Vision Ears, nose, mouth, throat: DENIES: Tinnitus, Hearing loss, Vertigo, Nasal discharge, Oral lesions, Throat pain, Hoarseness, Ear Pain, Running Nose, Epistaxis, Sinus Pain, Toothache, Odynophagia Respiratory: DENIES: Apneas, Cough, Snoring, Wheezing, Hemoptysis, Sputum production, Shortness of breath Cardiovascular: DENIES: Chest pain, Palpitations, Syncope, Dyspnea on Exertion , PND, Lower Extremity Edema, Orthopnea, Claudication Gastrointestinal: DENIES: Abdominal pain, Black stools, Bloody stools, Constipation, Diarrhea, Nausea, Vomiting, Difficulty Swallowing, Anorexia Genitourinary: DENIES: Sexual dysfunction, Urinary frequency, Urinary incontinence, Urgency, Hematuria, Dysuria, Nocturia, Penile Discharge, Testicular Pain, Testicular Swelling Musculoskeletal: DENIES: Joint pain, Muscle aches, Stiffness, Joint Swelling, Back pain, Neck pain Integumentary: DENIES: Abnormal pigmentation, Nail changes, Pruritus, Rash Hematologic/lymphatic: DENIES: Bruising, Lymphadenopathy Immunologic/allergic: DENIES: Eczema, Urticaria Neurologic: DENIES: Abnormal gait, Headache, Localized weakness, Paresthesias, Seizures, Speech Problems, Tremor, Poor Balance Psychiatric: COMPLAINS OF: Mood changes, Depression, Suicidal Ideation, DENIES : Anxiety, Confusion, Hallucinations, Agitation, Homicidal Ideation, Delusions Past Family Social History Coded Allergies: codeine (Verified Allergy, Severe, throat sweling, hallucinations, 06/10/17 ) No Active Prescriptions or Reported Meds Current Medications Medications (Trade) Dose Ordered Sig/Jen Route Start Time Stop Time Status Last Admin Acetylcysteine 65600 mg/Dextrose 1,050 ml @ 62.5 mls/hr ONCE ONCE IV 06/10/17 23:30 06/11/17 16:17 06/11/17 01:21 Dextrose/Sodium Chloride 1,000 ml @ 100 mls/hr Q10H IV 06/10/17 20:00 06/11/17 06:37 (NS Flush) 2 ml UNSCH PRN IV FLUSH 06/10/17 19:45 (NS Flush) 2 ml BID IV FLUSH 06/10/17 21:00 (Protonix Inj) 40 mg DAILY IV PUSH 06/10/17 19:45 06/11/17 08:48 (Zofran Inj) 4 mg Q6H PRN IV PUSH 06/10/17 19:45 (Reglan Inj) 10 mg Q6H PRN IV PUSH 06/10/17 19:45 06/10/17 20:51 (Duoneb Neb) 1 ampule Q4HR NEB PRN INH 06/10/17 19:45 ([facility]) 1 Q361D XX 06/10/17 19:45 (Chlorhexidine 2% Cloth) 3 pack Taper DAILY@04 TOP 06/11/17 04:00 06/07/18 03:59 06/11/17 01:03 (Chlorhexidine 2% Cloth) 3 pack UNSCH PRN TOP 06/10/17 19:45 (Milk Of Magnesia Liq) 30 ml Q12H PRN PO 06/10/17 19:45 (Senokot) 17.2 mg Q12H PRN PO 06/10/17 19:45 (Dulcolax Supp) 10 mg DAILY PRN RECTAL 06/10/17 19:45 (Lactulose Liq) 30 ml DAILY PRN PO 06/10/17 19:45 (Dilaudid Pf Inj) 0.25 mg Q4H PRN IV PUSH 06/11/17 07:45 06/11/17 08:49 Potassium Chloride 100 ml @ 50 mls/hr Q2H PRN IV 06/11/17 07:30 Potassium Chloride 100 ml @ 50 mls/hr Q2H PRN IV 06/11/17 07:30 (K-Lyte Cl Eff) 50 meq UNSCH PRN PO 06/11/17 07:30 Potassium Chloride 100 ml @ 25 mls/hr UNSCH PRN IV 06/11/17 07:30 Potassium Chloride 100 ml @ 50 mls/hr Q2H PRN IV 06/11/17 07:30 Magnesium Sulfate 4 gm/Sodium Chloride 100 ml @ 50 mls/hr UNSCH PRN IV 06/11/17 07:30 (Mag-Ox) 800 mg UNSCH PRN PO 06/11/17 07:30 Magnesium Sulfate 2 gm/Sodium Chloride 100 ml @ 50 mls/hr UNSCH PRN IV 06/11/17 07:30 (K-Phos) 2,000 mg Q4H PRN PO 06/11/17 07:30 Sodium Phosphate 30 mmol/Sodium Chloride 250 ml @ 42 mls/hr UNSCH PRN IV 06/11/17 07:30 (K-Phos) 2,000 mg UNSCH PRN PO/TUBE 06/11/17 07:30 Potassium Phosphate 30 mmol/ Sodium Chloride 260 ml @ 42 mls/hr UNSCH PRN IV 06/11/17 07:30 Family Psych History No family psychiatric history Social History Patient was born and raised in [place], he was mostly raised by his mother, his father was out of the picture, he lives in [place] with his , recently from her, he has no kids, 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 2) Good family support, no previous psychiatric history, no previous suicide attempts, no history of illegal substance use or alcohol use Physical Exam At this moment the patient does not present any tremors, no EPS, no withdrawal symptoms, no psychomotor retardation or a Vital Signs Vital Signs Date Time Temp Pulse Resp B/P (MAP) Pulse Ox O2 Delivery O2 Flow Rate FiO2 06/11/17 10:52 99 21 06/11/17 09:56 12 06/11/17 06:00 96 142/82 (102) 06/11/17 04:00 98.9 06/10/17 20:49 Room Air I/O 06/11/17 06/11/17 06/12/17 08:00 16:00 00:00 Intake Total 1051 ml Output Total 1075 ml Balance -24 ml Lab Results Test 06/10/17 18:30 06/10/17 20:00 06/10/17 22:15 06/10/17 22:35 White Blood Count 12.4 TH/MM3 Red Blood Count 5.51 MIL/MM3 Hemoglobin 15.7 GM/DL Hematocrit 45.8 % Mean Corpuscular Volume 83.1 FL Mean Corpuscular Hemoglobin 28.5 PG Mean Corpuscular Hemoglobin Concent 34.3 % Red Cell Distribution Width 13.3 % Platelet Count 248 TH/MM3 Mean Platelet Volume 9.2 FL Neutrophils (%) (Auto) 82.6 % Lymphocytes (%) (Auto) 14.2 % Monocytes (%) (Auto) 1.4 % Eosinophils (%) (Auto) 0.4 % Basophils (%) (Auto) 1.4 % Neutrophils # (Auto) 10.2 TH/MM3 Lymphocytes # (Auto) 1.8 TH/MM3 Monocytes # (Auto) 0.2 TH/MM3 Eosinophils # (Auto) 0.0 TH/MM3 Basophils # (Auto) 0.2 TH/MM3 CBC Comment DIFF FINAL Differential Comment Prothrombin Time 18.8 SEC 18.5 SEC Prothromb Time International Ratio 1.9 RATIO 1.8 RATIO Activated Partial Thromboplast Time 26.9 SEC Blood Urea Nitrogen 11 MG/DL 8 MG/DL Creatinine 0.92 MG/DL 0.81 MG/DL Random Glucose 117 MG/DL 166 MG/DL Total Protein 7.5 GM/DL 7.2 GM/DL Albumin 3.7 GM/DL 3.4 GM/DL Calcium Level 8.7 MG/DL 8.2 MG/DL Alkaline Phosphatase 76 U/L 66 U/L Aspartate Amino Transf (AST/SGOT) 407 U/L 608 U/L Alanine Aminotransferase (ALT/SGPT) 480 U/L 663 U/L Total Bilirubin 0.8 MG/DL 0.8 MG/DL Sodium Level 138 MEQ/L 140 MEQ/L Potassium Level 3.7 MEQ/L 3.2 MEQ/L Chloride Level 107 MEQ/L 105 MEQ/L Carbon Dioxide Level 22.2 MEQ/L 23.0 MEQ/L Anion Gap 9 MEQ/L 12 MEQ/L Estimat Glomerular Filtration Rate 101 ML/MIN 117 ML/MIN Thyroid Stimulating Hormone 3rd Gen 0.754 uIU/ML Salicylates Level LESS THAN 1.7 MG/DL Acetaminophen Level 198.0 MCG/ML Ethyl Alcohol Level LESS THAN 3 MG/DL Nasal Screen MRSA (PCR) MRSA NOT DETECTED Urine Opiates Screen NEG Urine Barbiturates Screen NEG Urine Amphetamines Screen NEG Urine Benzodiazepines Screen NEG Urine Cocaine Screen NEG Urine Cannabinoids Screen NEG Lactic Acid Level 1.6 mmol/L Test 06/11/17 04:27 06/11/17 10:45 White Blood Count 10.9 TH/MM3 Red Blood Count 5.23 MIL/MM3 Hemoglobin 14.7 GM/DL Hematocrit 43.8 % Mean Corpuscular Volume 83.9 FL Mean Corpuscular Hemoglobin 28.1 PG Mean Corpuscular Hemoglobin Concent 33.5 % Red Cell Distribution Width 12.8 % Platelet Count 184 TH/MM3 Mean Platelet Volume 8.6 FL Neutrophils (%) (Auto) 87.5 % Lymphocytes (%) (Auto) 10.4 % Monocytes (%) (Auto) 1.3 % Eosinophils (%) (Auto) 0.3 % Basophils (%) (Auto) 0.5 % Neutrophils # (Auto) 9.6 TH/MM3 Lymphocytes # (Auto) 1.1 TH/MM3 Monocytes # (Auto) 0.1 TH/MM3 Eosinophils # (Auto) 0.0 TH/MM3 Basophils # (Auto) 0.1 TH/MM3 CBC Comment DIFF FINAL Differential Comment Prothrombin Time 17.2 SEC 17.2 SEC Prothromb Time International Ratio 1.7 RATIO 1.7 RATIO Blood Urea Nitrogen 6 MG/DL 4 MG/DL Creatinine 0.66 MG/DL 0.73 MG/DL Random Glucose 151 MG/DL 146 MG/DL Total Protein 6.8 GM/DL 6.8 GM/DL Albumin 3.2 GM/DL 3.1 GM/DL Calcium Level 8.6 MG/DL 8.6 MG/DL Alkaline Phosphatase 64 U/L 67 U/L Aspartate Amino Transf (AST/SGOT) 1432 U/L Alanine Aminotransferase (ALT/SGPT) 1370 U/L 2583 U/L Total Bilirubin 0.9 MG/DL 0.7 MG/DL Sodium Level 139 MEQ/L 137 MEQ/L Potassium Level 3.3 MEQ/L 3.7 MEQ/L Chloride Level 107 MEQ/L 106 MEQ/L Carbon Dioxide Level 23.2 MEQ/L 24.9 MEQ/L Anion Gap 9 MEQ/L 6 MEQ/L Estimat Glomerular Filtration Rate 148 ML/MIN 132 ML/MIN Lactic Acid Level 1.1 mmol/L 1.1 mmol/L Salicylates Level LESS THAN 1.7 MG/DL Acetaminophen Level 24.9 MCG/ML Activated Partial Thromboplast Time 25.9 SEC Mental Status Examination Appearance: Appropriate Consciousness: Alert Orientation: x4 Motor Activity: Normal gait Speech: Unremarkable Language: Adequate Fund of Knowledge: Adequate Attention and Concentration: Adequate Memory: Unremarkable Mood: Sad Affect: Sad Thought Process & Associations: Intact Thought Content: Appropriate Hallucination Type: None Delusion Type: None Suicidal Ideation: No Suicidal Plan: No Suicidal Intention: No Homicidal Ideation: No Homicidal Plan: No Homicidal Intention: No Insight: Fair Judgment: Impulsive Assessment & Plan Problem List: (1) Major depressive disorder, single episode ICD Codes: F32.9 - Major depressive disorder, single episode, unspecified Assessment & Plan: Psychiatric evaluation today I find a patient that is tearful, sad, but calm, cooperative, regretful after his recent overdose. The patient reports that he has been having conflicts with his in the last month, but in the last week, since she left him he has been feeling hopeless, helpless, with increased sense of guiltiness, worthlessness, poor sleep, poor appetite, anxiety, which finally led to a suicidal attempt by overdosing with Tylenol. This is a patient with no psychiatric history, who denies the use of illegal drugs and alcohol, who seems to have a very good family and social support, and a steady job and good level of education. He definitely has several high risk of danger to self, he has clinical depression and he meets criteria for involuntary psychiatric admission at this moment. Once the patient is medically stable he should be transferred to psychiatry. The patient has full mental capacity to participate medical treatment, he is psychiatrically clear for liver transplant, if needed. No psychotropics indicated at this moment. Extensive support, motivation and psychoeducation provided to the patient and also to his sisters. Consult appreciated. Assessment & Plan Estimated LOS: Barrera Leyva MD Jun 11, 2017 11:47
[2017-06-11 14:11] LABS: ACETAMINOPHEN 6.4 MCG/ML (10.0-30.0)
[2017-06-11 14:31] LABS: MAGNESIUM 1.8 MG/DL (1.5-2.5)
[2017-06-11 14:35] LABS: PHOSPHORUS 1.8 MG/DL (2.5-4.9)
[2017-06-11] MEDS ORDERED: ACETYLCYSTEINE INJ 10,000 MG in DEXTROSE 5% IN WATE 1000ML INJ 1,000 ML IV ONE ×2 (17:00)
--- NOTE | 2017-06-11 17:29 | MB ---
cc: Jose Caraballo MD, Alexander S MD DATE: 06/11/2017 PATIENT OF: Hudson Carlisle MD REASON FOR CONSULTATION: Elevated liver function tests, acute Tylenol toxicity. HISTORY OF PRESENT ILLNESS: Mr. Rehman is a 26-year-old gentleman who, in a span of 48 hours, allegedly took 200 tablets of 500 mg Tylenol. On the , he took 100 tablets and then on the , he took another 100 tablets. After ingestion, he started to have some symptoms of nausea, vomiting and that is when he called his brother, who then eventually brought him to the hospital. At this time, he is complaining of a headache and generalized abdominal pain. He feels that his abdomen is full and bloated. He is not having any hematemesis or hematochezia. He is arousable and his responses are adequate. REVIEW OF SYMPTOMS: Fatigue, headache and abdominal pain. Otherwise, no symptoms reported. ALLERGIES: CODEINE. PAST MEDICAL HISTORY: None. PAST SURGICAL HISTORY: None. MEDICINE ON ADMISSION: None except for p.r.n. octreotide. SOCIAL HISTORY: Last alcohol drink a few months ago at a wedding. Does not report any other illicit drug use. PHYSICAL EXAMINATION: GENERAL: Reveals a well-nourished man in no apparent distress. VITAL SIGNS: Stable. HEAD AND NECK: Anicteric sclerae. CHEST: Bilateral air entry with rales. ABDOMEN: Soft. Tenderness to palpation in the right upper quadrant. CENTRAL NERVOUS SYSTEM: Nonfocal. RECTAL: Deferred at this time. LABORATORY DATA: Reveal white cell count of 10.9. Lactic acid 1.1, bilirubin 0.7, AST 2385, ALT 2583. INR initially 1.9, now at 1.7. Drug screen negative for salicylate. Initial Tylenol level 198, now Tylenol level is 6.4. IMPRESSION: Acute Tylenol toxicity with liver injury. RECOMMENDATIONS: The patient does have markedly elevated AST, ALT levels. He does have elevated INR. He has been started on IV Mucomyst as per Poison Control protocol. His liver function tests are still going up. I would recommend monitoring his CMP, his liver function tests and his INR q. 12 hours. Transplant surgery has been consulted. Dr. Gardner has evaluated the patient already and case has been discussed with [facility] transplant center. Monitor closely for signs of encephalopathy. The patient does have a sitter at the bedside at this time. Because of the time of ingestion, no additional benefit to using cimetidine or activated charcoal for this patient. Obviously need to continue to monitor for any signs of renal failure in this patient as well. Thank you for this referral. Dr. Lance will follow from tomorrow. MD CARLOS Rodriguez/SB , 05:05 PM , 05:28 PM
[2017-06-11 18:01] LABS: CHLORIDE 105 MEQ/L (98-107); SODIUM (NA) 137 MEQ/L (136-145)
[2017-06-11 18:04] LABS: CALCIUM 8.6 MG/DL (8.5-10.1)
[2017-06-11 18:05] LABS: ALBUMIN 2.9 GM/DL (3.4-5.0); BICARBONATE 26.2 MEQ/L (21.0-32.0); BLOOD UREA NITROGEN 3 MG/DL (7-18); GLUCOSE,RANDOM 126 MG/DL (74-106)
[2017-06-11 18:06] LABS: INTERNATIONAL NORMALIZED RATIO 1.8 RATIO; PROTHROMBIN TIME - PATIENT 18.1 SEC (9.8-11.6)
[2017-06-11 18:08] LABS: CREATININE 0.76 MG/DL (0.60-1.30); GLOMERULAR FILTRATION RATE 126 ML/MIN (>89)
[2017-06-11 18:09] LABS: TOTAL BILIRUBIN ADULT 0.9 MG/DL (0.2-1.0); TOTAL PROTEIN 6.6 GM/DL (6.4-8.2)
[2017-06-11 18:11] LABS: ALKALINE PHOSPHATASE 63 U/L (45-117)
[2017-06-11 18:15] LABS: ALT (GPT) 2651 U/L (12-78); AST (GOT) 1609 U/L (15-37)
--- NOTE | 2017-06-11 21:13 | EKG ---
Date Performed: 06/10/2017 Time Performed: 18:51:05 PTAGE: 26 years EKG: Sinus rhythm NONSPECIFIC T-WAVE ABNORMALITY BORDERLINE ECG NO PREVIOUS TRACING DOCTOR: Mal Steele Interpretating Date/Time 06/11/2017 21:12:08
[2017-06-11 22:43] LABS: ACETAMINOPHEN LESS THAN 2.0 MCG/ML (10.0-30.0)
[2017-06-11 22:47] LABS: CHLORIDE 104 MEQ/L (98-107); SODIUM (NA) 137 MEQ/L (136-145)
[2017-06-11 22:51] LABS: BICARBONATE 27.7 MEQ/L (21.0-32.0); BLOOD UREA NITROGEN 3 MG/DL (7-18); CALCIUM 8.5 MG/DL (8.5-10.1); GLUCOSE,RANDOM 121 MG/DL (74-106)
[2017-06-11 22:53] LABS: INTERNATIONAL NORMALIZED RATIO 1.8 RATIO; PROTHROMBIN TIME - PATIENT 17.8 SEC (9.8-11.6)
[2017-06-11 22:54] LABS: CREATININE 0.77 MG/DL (0.60-1.30); GLOMERULAR FILTRATION RATE 124 ML/MIN (>89)
[2017-06-11 22:56] LABS: TOTAL BILIRUBIN ADULT 1.1 MG/DL (0.2-1.0); TOTAL PROTEIN 6.6 GM/DL (6.4-8.2)
[2017-06-11 22:57] LABS: ALKALINE PHOSPHATASE 62 U/L (45-117)
[2017-06-11 23:02] LABS: ALT (GPT) 2363 U/L (12-78); AST (GOT) 1090 U/L (15-37)
[2017-06-12] VITALS (12 sets, daily range): BP systolic 92–160; BP diastolic 39–89; PULSE 74–122; RESP 21–25; TEMP 97.8–99.2; O2SAT 93–99
[2017-06-12 01:59] LABS: ACETAMINOPHEN LESS THAN 2.0 MCG/ML (10.0-30.0)
[2017-06-12] MEDS: CHLORHEXIDINE GLUCONATE 2 % 1 PACK (2 CLOTHS) TOP SCH (02:26)
[2017-06-12] MEDS: DEXT 5%-NACL 0.45% 1000 ML INJ 1,000 ML IV SCH (02:26)
[2017-06-12 05:00] LABS: INTERNATIONAL NORMALIZED RATIO 1.6 RATIO; PROTHROMBIN TIME - PATIENT 16.6 SEC (9.8-11.6)
[2017-06-12 05:01] LABS: CHLORIDE 106 MEQ/L (98-107); SODIUM (NA) 139 MEQ/L (136-145)
[2017-06-12 05:03] LABS: AUTOMATED NEUTROPHIL # 5.7 TH/MM3 (1.8-7.7); BASOPHIL # 0.1 TH/MM3 (0-0.2); BASOPHIL % 0.7 % (0.0-2.0); EOSINOPHIL # 0.2 TH/MM3 (0-0.4); EOSINOPHIL % 2.3 % (0.0-4.0); HEMATOCRIT 38.7 % (39.0-51.0); HEMOGLOBIN 13.2 GM/DL (13.0-17.0); LYMPH % 25.1 % (9.0-44.0); MEAN CELL VOLUME 84.7 FL (80.0-100.0); MEAN CORPUSCULAR HEMOGLOBIN 28.9 PG (27.0-34.0); MEAN CORPUSCULAR HGB CONC 34.1 % (32.0-36.0); MEAN PLATELET VOLUME 9.1 FL (7.0-11.0); MONO % 2.6 % (0.0-8.0); MONOCYTE # 0.2 TH/MM3 (0-0.9); NEUT % 69.3 % (16.0-70.0); PLATELET COUNT 198 TH/MM3 (150-450); RED BLOOD COUNT 4.57 MIL/MM3 (4.50-5.90); RED CELL DISTRIBUTION WIDTH 13.4 % (11.6-17.2); WHITE BLOOD COUNT 8.2 TH/MM3 (4.0-11.0)
[2017-06-12 05:04] LABS: CALCIUM 8.6 MG/DL (8.5-10.1)
[2017-06-12 05:05] LABS: ALBUMIN 2.8 GM/DL (3.4-5.0); BICARBONATE 27.8 MEQ/L (21.0-32.0); BLOOD UREA NITROGEN 2 MG/DL (7-18); GLUCOSE,RANDOM 105 MG/DL (74-106)
[2017-06-12 05:08] LABS: AST (GOT) 678 U/L (15-37); CREATININE 0.68 MG/DL (0.60-1.30); GLOMERULAR FILTRATION RATE 143 ML/MIN (>89); PHOSPHORUS 1.7 MG/DL (2.5-4.9)
[2017-06-12 05:10] LABS: TOTAL PROTEIN 6.4 GM/DL (6.4-8.2)
[2017-06-12 05:11] LABS: ALKALINE PHOSPHATASE 59 U/L (45-117)
[2017-06-12 05:15] LABS: ALT (GPT) 2046 U/L (12-78)
--- NOTE | 2017-06-12 07:23 | HHI.CCPN ---
Subjective Remarks/Hospital Course Hospital Course: This is a 26yM with no significant past medical history who presented to the emergency department with abdominal pain after intentional tylenol overdose attempt. he states that he feels depressed, endorses suicidal ideation. He states he took 100 tabs of 500mg tylenol around 10am 06/09, and then an additional 100 tabs at 1400 on 06/10. He endorses generalized crampy abdominal pain. denies constipation, diarrhea, blood in stool or hematemesis. states he has never had any prior suicide attempts. In the emergency department, his LFTs were elevated and have uptrended. his INR was 1.9 initially. MELD is currently 12. tylenol level was elevated at 198 and repeat is currently pending. Subjective: 06/12: LFTs peaked and downtrended. abdominal pain has improved. tylenol level now undetectable. mucomyst still running, almost completed second 16-hour run. Objective Vital Signs Date Time Temp Pulse Resp B/P (MAP) Pulse Ox O2 Delivery O2 Flow Rate FiO2 06/12/17 06:00 122 22 145/84 (104) 06/12/17 05:00 99 06/12/17 04:00 97.8 06/11/17 19:25 21 06/10/17 20:49 Room Air Intake and Output 06/12/17 06/12/17 06/13/17 08:00 16:00 00:00 Intake Total 720 ml Output Total 1775 ml Balance -1055 ml Result Diagram: 06/12/17 0432 06/12/17 0432 Objective Remarks gen: young male, lying in bed, no acute distress heent: nc. at. perrl. mmm. neck: no jvd. trachea midline. chest: equal chest rise. room air. cv: normal rate, regular rhythm. sinus. abd: soft, nontender this morning to palpation. no hepatosplenomegaly. no guarding. no rebound. nondistended. extr: warm, well perfused. no clubbing, cyanosis. no edema. neuro: RASS 0. GCS 15. follows commands. no focal deficits. A/P Assessment and Plan Assessment: 26yM with intentional tylenol overdose and evidence of acute hepatic dysfunction. clinically improving. have spoken with poison control again today, and they recommend an additional 16h bag of acetylcysteine, which I have ordered. continue to trend LFTs. stable for transfer to floor. remains under Siu Act. Active Problems: Suicidal Ideations Intentional Acetaminophen Overdose Acute Hepatitis Coagulopathy secondary to acute liver dysfunction Abdominal pain secondary to acute liver dysfunction Plan: - serial LFTs, coags - de-escalate BG checks to AC/HS - neuro checks q4h - GI consult - psychiatry consult - Siu Act - hold pharmacologic anticoagulation given elevated INR - advance diet - once LFTs < 1000, can be medically cleared for psych. currently needs additional mucomyst and monitoring. Transfer to floor. consult hospitalist service. Corey Arias MD June 12, 2017 07:23
--- NOTE | 2017-06-12 07:52 | HHI.GIFU ---
GI Follow-up Note Consult Follow-up Subjective: Patient laying in bed comfortably, slightly nausea.No vomiting, tolerating diet well. Transfer to regular floor order in . LFTS improving Objective: PHYSICAL EXAMINATION:obese Vitals signs stable No fever Vital Signs Date Time Temp Pulse Resp B/P (MAP) Pulse Ox O2 Delivery O2 Flow Rate FiO2 06/12/17 06:00 122 22 145/84 (104) 06/12/17 06:00 122 06/12/17 05:00 80 25 115/60 (78) 99 06/12/17 04:00 78 06/12/17 04:00 97.8 78 21 100/39 (59) 93 06/12/17 03:00 80 06/12/17 03:00 80 23 123/60 (81) 97 06/12/17 02:00 86 06/12/17 02:00 86 25 92/58 (69) 96 06/12/17 00:00 110 06/12/17 00:00 110 22 95 HEENT: Pupils round and reactive to light; normocephalic; atraumatic; no jaundice. Throat is clear. NECK: Neck is supple, no JVD, no lymphadenopathy. CHEST: Chest is clear to auscultation and percussion. CARDIAC: Regular rate and rhythm with no murmur gallop or rubs. ABDOMEN: Soft, nondistended, nontender; no hepatosplenomegaly; bowel sounds are present in all four quadrants. EXTREMITIES: No clubbing, cyanosis, or edema. SKIN: Normal; no rash; no jaundice. 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; alert and oriented times three, no flapping tremor or other neurological signs Available Data (labs, X- Rays, Procedues) : Laboratory Tests Test 06/10/17 18:30 06/10/17 20:00 06/10/17 22:15 06/10/17 22:35 White Blood Count 12.4 TH/MM3 Red Blood Count 5.51 MIL/MM3 Hemoglobin 15.7 GM/DL Hematocrit 45.8 % Mean Corpuscular Volume 83.1 FL Mean Corpuscular Hemoglobin 28.5 PG Mean Corpuscular Hemoglobin Concent 34.3 % Red Cell Distribution Width 13.3 % Platelet Count 248 TH/MM3 Mean Platelet Volume 9.2 FL Neutrophils (%) (Auto) 82.6 % Lymphocytes (%) (Auto) 14.2 % Monocytes (%) (Auto) 1.4 % Eosinophils (%) (Auto) 0.4 % Basophils (%) (Auto) 1.4 % Neutrophils # (Auto) 10.2 TH/MM3 Lymphocytes # (Auto) 1.8 TH/MM3 Monocytes # (Auto) 0.2 TH/MM3 Eosinophils # (Auto) 0.0 TH/MM3 Basophils # (Auto) 0.2 TH/MM3 CBC Comment DIFF FINAL Differential Comment Prothrombin Time 18.8 SEC 18.5 SEC Prothromb Time International Ratio 1.9 RATIO 1.8 RATIO Activated Partial Thromboplast Time 26.9 SEC Blood Urea Nitrogen 11 MG/DL 8 MG/DL Creatinine 0.92 MG/DL 0.81 MG/DL Random Glucose 117 MG/DL 166 MG/DL Total Protein 7.5 GM/DL 7.2 GM/DL Albumin 3.7 GM/DL 3.4 GM/DL Calcium Level 8.7 MG/DL 8.2 MG/DL Alkaline Phosphatase 76 U/L 66 U/L Aspartate Amino Transf (AST/SGOT) 407 U/L 608 U/L Alanine Aminotransferase (ALT/SGPT) 480 U/L 663 U/L Total Bilirubin 0.8 MG/DL 0.8 MG/DL Sodium Level 138 MEQ/L 140 MEQ/L Potassium Level 3.7 MEQ/L 3.2 MEQ/L Chloride Level 107 MEQ/L 105 MEQ/L Carbon Dioxide Level 22.2 MEQ/L 23.0 MEQ/L Anion Gap 9 MEQ/L 12 MEQ/L Estimat Glomerular Filtration Rate 101 ML/MIN 117 ML/MIN Thyroid Stimulating Hormone 3rd Gen 0.754 uIU/ML Salicylates Level LESS THAN 1.7 MG/DL Acetaminophen Level 198.0 MCG/ML Ethyl Alcohol Level LESS THAN 3 MG/DL Nasal Screen MRSA (PCR) MRSA NOT DETECTED Urine Opiates Screen NEG Urine Barbiturates Screen NEG Urine Amphetamines Screen NEG Urine Benzodiazepines Screen NEG Urine Cocaine Screen NEG Urine Cannabinoids Screen NEG Lactic Acid Level 1.6 mmol/L Test 06/11/17 04:27 06/11/17 10:45 06/11/17 17:44 06/11/17 22:28 White Blood Count 10.9 TH/MM3 Red Blood Count 5.23 MIL/MM3 Hemoglobin 14.7 GM/DL Hematocrit 43.8 % Mean Corpuscular Volume 83.9 FL Mean Corpuscular Hemoglobin 28.1 PG Mean Corpuscular Hemoglobin Concent 33.5 % Red Cell Distribution Width 12.8 % Platelet Count 184 TH/MM3 Mean Platelet Volume 8.6 FL Neutrophils (%) (Auto) 87.5 % Lymphocytes (%) (Auto) 10.4 % Monocytes (%) (Auto) 1.3 % Eosinophils (%) (Auto) 0.3 % Basophils (%) (Auto) 0.5 % Neutrophils # (Auto) 9.6 TH/MM3 Lymphocytes # (Auto) 1.1 TH/MM3 Monocytes # (Auto) 0.1 TH/MM3 Eosinophils # (Auto) 0.0 TH/MM3 Basophils # (Auto) 0.1 TH/MM3 CBC Comment DIFF FINAL Differential Comment Prothrombin Time 17.2 SEC 17.2 SEC 18.1 SEC 17.8 SEC Prothromb Time International Ratio 1.7 RATIO 1.7 RATIO 1.8 RATIO 1.8 RATIO Blood Urea Nitrogen 6 MG/DL 4 MG/DL 3 MG/DL 3 MG/DL Creatinine 0.66 MG/DL 0.73 MG/DL 0.76 MG/DL 0.77 MG/DL Random Glucose 151 MG/DL 146 MG/DL 126 MG/DL 121 MG/DL Total Protein 6.8 GM/DL 6.8 GM/DL 6.6 GM/DL 6.6 GM/DL Albumin 3.2 GM/DL 3.1 GM/DL 2.9 GM/DL 3.0 GM/DL Calcium Level 8.6 MG/DL 8.6 MG/DL 8.6 MG/DL 8.5 MG/DL Alkaline Phosphatase 64 U/L 67 U/L 63 U/L 62 U/L Aspartate Amino Transf (AST/SGOT) 1432 U/L 2385 U/L 1609 U/L 1090 U/L Alanine Aminotransferase (ALT/SGPT) 1370 U/L 2583 U/L 2651 U/L 2363 U/L Total Bilirubin 0.9 MG/DL 0.7 MG/DL 0.9 MG/DL 1.1 MG/DL Sodium Level 139 MEQ/L 137 MEQ/L 137 MEQ/L 137 MEQ/L Potassium Level 3.3 MEQ/L 3.7 MEQ/L 3.7 MEQ/L 3.4 MEQ/L Chloride Level 107 MEQ/L 106 MEQ/L 105 MEQ/L 104 MEQ/L Carbon Dioxide Level 23.2 MEQ/L 24.9 MEQ/L 26.2 MEQ/L 27.7 MEQ/L Anion Gap 9 MEQ/L 6 MEQ/L 6 MEQ/L 5 MEQ/L Estimat Glomerular Filtration Rate 148 ML/MIN 132 ML/MIN 126 ML/MIN 124 ML/MIN Lactic Acid Level 1.1 mmol/L 1.1 mmol/L 1.0 mmol/L 1.0 mmol/L Salicylates Level LESS THAN 1.7 MG/DL Acetaminophen Level 24.9 MCG/ML 6.4 MCG/ML LESS THAN 2.0 MCG/ML LESS THAN 2.0 MCG/ML Activated Partial Thromboplast Time 25.9 SEC 25.7 SEC 25.9 SEC Phosphorus Level 1.8 MG/DL Magnesium Level 1.8 MG/DL Test 06/12/17 04:32 White Blood Count 8.2 TH/MM3 Red Blood Count 4.57 MIL/MM3 Hemoglobin 13.2 GM/DL Hematocrit 38.7 % Mean Corpuscular Volume 84.7 FL Mean Corpuscular Hemoglobin 28.9 PG Mean Corpuscular Hemoglobin Concent 34.1 % Red Cell Distribution Width 13.4 % Platelet Count 198 TH/MM3 Mean Platelet Volume 9.1 FL Neutrophils (%) (Auto) 69.3 % Lymphocytes (%) (Auto) 25.1 % Monocytes (%) (Auto) 2.6 % Eosinophils (%) (Auto) 2.3 % Basophils (%) (Auto) 0.7 % Neutrophils # (Auto) 5.7 TH/MM3 Lymphocytes # (Auto) 2.0 TH/MM3 Monocytes # (Auto) 0.2 TH/MM3 Eosinophils # (Auto) 0.2 TH/MM3 Basophils # (Auto) 0.1 TH/MM3 CBC Comment DIFF FINAL Differential Comment Prothrombin Time 16.6 SEC Prothromb Time International Ratio 1.6 RATIO Activated Partial Thromboplast Time 26.5 SEC Blood Urea Nitrogen 2 MG/DL Creatinine 0.68 MG/DL Random Glucose 105 MG/DL Total Protein 6.4 GM/DL Albumin 2.8 GM/DL Calcium Level 8.6 MG/DL Phosphorus Level 1.7 MG/DL Magnesium Level 2.0 MG/DL Alkaline Phosphatase 59 U/L Aspartate Amino Transf (AST/SGOT) 678 U/L Alanine Aminotransferase (ALT/SGPT) 2046 U/L Total Bilirubin 1.0 MG/DL Sodium Level 139 MEQ/L Potassium Level 3.7 MEQ/L Chloride Level 106 MEQ/L Carbon Dioxide Level 27.8 MEQ/L Anion Gap 5 MEQ/L Estimat Glomerular Filtration Rate 143 ML/MIN Lactic Acid Level 1.1 mmol/L ASSESSMENT/PLAN: Tylenol overdose -suicidal attempt -stable elevated lfts secondary Tylenol overdose -improving mild liver insufficiency secondary the above -improving Recommendation Mucomyst as per protocol monitor pt/inr. cbc cmp neurological monitoring It was a pleasure seeing Stewart Rehman. Thank you for this consult. Entered by: Ashley Jones MD June 12, 2017 07:52
--- NOTE | 2017-06-12 08:35 | HHI.PR ---
Subjective Remarks Patient admitted after intentional tylenol overdose. Some mild nausea this AM/ no emesis. Denies abd pain (when asked if his abd hurts says: "not really"). Keyla dinner last evening. Objective Vital Signs Date Time Temp Pulse Resp B/P (MAP) Pulse Ox O2 Delivery O2 Flow Rate FiO2 06/12/17 06:00 122 22 145/84 (104) 06/12/17 06:00 122 06/12/17 05:00 80 25 115/60 (78) 99 06/12/17 04:00 78 06/12/17 04:00 97.8 78 21 100/39 (59) 93 06/12/17 03:00 80 06/12/17 03:00 80 23 123/60 (81) 97 06/12/17 02:00 86 06/12/17 02:00 86 25 92/58 (69) 96 06/12/17 00:00 110 06/12/17 00:00 110 22 95 06/11/17 23:00 96 19 123/61 (81) 98 06/11/17 23:00 96 06/11/17 22:00 92 06/11/17 22:00 92 24 133/68 (89) 95 06/11/17 20:00 98 29 127/68 (87) 98 06/11/17 20:00 98 06/11/17 20:00 99.2 98 29 127/68 (87) 98 06/11/17 19:25 96 21 06/11/17 19:00 102 16 111/60 (77) 98 06/11/17 18:00 106 20 142/72 (95) 97 06/11/17 18:00 106 06/11/17 17:56 24 06/11/17 17:00 102 30 148/75 (99) 96 06/11/17 16:00 98.4 100 31 150/89 (109) 96 06/11/17 16:00 100 06/11/17 15:00 100 16 134/72 (92) 98 06/11/17 14:00 100 06/11/17 14:00 100 18 152/77 (102) 98 06/11/17 13:00 98 29 142/90 (107) 96 06/11/17 12:00 98.5 96 15 136/65 (88) 97 06/11/17 12:00 96 06/11/17 11:00 96 24 144/82 (102) 97 06/11/17 10:52 99 21 06/11/17 10:00 96 06/11/17 10:00 96 28 143/71 (95) 95 06/11/17 09:00 98.7 96 16 131/74 (93) 96 I/O 06/11/17 06/11/17 06/11/17 06/12/17 06/12/17 06/12/17 07:00 15:00 23:00 07:00 15:00 23:00 Intake Total 1051 ml 2272 ml 720 ml Output Total 1075 ml 1025 ml 1775 ml Balance -24 ml 1247 ml -1055 ml Intake Oral 720 ml IV Total 1051 ml 2272 ml Output Urine Total 1075 ml 1025 ml 1775 ml Stool Total 0 ml 0 ml 0 ml Result Diagram: 06/12/17 04306/12/17 043 Objective Remarks Resp-CTAB CV-S1S2, Abd- + BS, soft NT/ND Ext-Calves soft NT B. No asterixis noted Assessment and Plan Problem List: (1) Suicidal behavior ICD Codes: R46.89 - Other symptoms and signs involving appearance and behavior Status: Acute (2) Intentional acetaminophen overdose ICD Codes: T39.1X2A - Poisoning by 4-Aminophenol derivatives, intentional self- harm, initial encounter Status: Acute Assessment and Plan 26 yom with ingestion of two hundred 500 mg tablerts of tylenol. Continues to improve clinically. His physical exam is unremarkable. GCS 15. His transaminases continue to trend downward. TBil and INR remain relatively stable. MELD remains 12. Agree with transfer to [facility]. Would continue to monitor labs and replete his phosphorus as needed (assist with liver cell repair/ regeneration). No new recommendations Problem Qualifiers (1) Suicidal behavior: Qualified Codes: T14.91XA - Suicide attempt, initial encounter (2) Intentional acetaminophen overdose: Qualified Codes: T39.1X2A - Poisoning by 4-aminophenol derivatives, intentional self-harm, initial encounter Juan J Gardner Jr., MD June 12, 2017 08:35
[2017-06-12] MEDS: SODIUM CHLORIDE 0.9% FLUSH 10 ML FLUSH IV FLUSH SCH (09:00)
[2017-06-12] MEDS ORDERED: ACETYLCYSTEINE INJ 10,000 MG in DEXTROSE 5% IN WATE 1000ML INJ 1,000 ML IV ONE ×2 (10:00)
--- NOTE | 2017-06-12 10:02 | HHI.DS ---
Discharge Summary Admission Date Jun 10, 2017 at 20:04 Discharge Date: June 12, 2017 Admitting Diagnosis Acetaminophen overdose Brief History This is a 26yM with no significant past medical history who presented to the emergency department with abdominal pain after intentional tylenol overdose attempt. he states that he feels depressed, endorses suicidal ideation. He states he took 100 tabs of 500mg tylenol around 10am 06/09, and then an additional 100 tabs at 1400 on 06/10. He endorses generalized crampy abdominal pain. denies constipation, diarrhea, blood in stool or hematemesis. states he has never had any prior suicide attempts. In the emergency department, his LFTs were elevated and have uptrended. his INR was 1.9 initially. MELD is currently 12. tylenol level was elevated at 198 and repeat is currently pending. CBC/BMP: 06/12/17 0432 06/12/17 0432 Significant Findings Laboratory Tests Test 06/10/17 18:30 06/10/17 20:00 06/10/17 22:15 06/10/17 22:35 White Blood Count 12.4 TH/MM3 (4.0-11.0) Neutrophils (%) (Auto) 82.6 % (16.0-70.0) Neutrophils # (Auto) 10.2 TH/MM3 (1.8-7.7) Prothrombin Time 18.8 SEC (9.8-11.6) 18.5 SEC (9.8-11.6) Random Glucose 117 MG/DL (74-106) 166 MG/DL (74-106) Aspartate Amino Transf (AST/SGOT) 407 U/L (15-37) 608 U/L (15-37) Alanine Aminotransferase (ALT/SGPT) 480 U/L (12-78) 663 U/L (12-78) Salicylates Level LESS THAN 1.7 MG/DL Acetaminophen Level 198.0 MCG/ML (10.0-30.0) Calcium Level 8.2 MG/DL (8.5-10.1) Potassium Level 3.2 MEQ/L (3.5-5.1) Test 06/11/17 04:27 06/11/17 10:45 06/11/17 17:44 06/11/17 22:28 Neutrophils (%) (Auto) 87.5 % (16.0-70.0) Neutrophils # (Auto) 9.6 TH/MM3 (1.8-7.7) Prothrombin Time 17.2 SEC (9.8-11.6) 17.2 SEC (9.8-11.6) 18.1 SEC (9.8-11.6) 17.8 SEC (9.8-11.6) Blood Urea Nitrogen 6 MG/DL (7-18) 4 MG/DL (7-18) 3 MG/DL (7-18) 3 MG/DL (7- 18) Random Glucose 151 MG/DL (74-106) 146 MG/DL (74-106) 126 MG/DL (74-106) 121 MG/DL (74-106) Albumin 3.2 GM/DL (3.4-5.0) 3.1 GM/DL (3.4-5.0) 2.9 GM/DL (3.4-5.0) 3.0 GM/DL (3.4-5.0) Aspartate Amino Transf (AST/SGOT) 1432 U/L (15-37) 2385 U/L (15-37) 1609 U/L (15-37) 1090 U/L (15-37) Alanine Aminotransferase (ALT/SGPT) 1370 U/L (-) 2583 U/L () 2651 U/L () 2363 U/L () Potassium Level 3.3 MEQ/L (3.5-5.1) 3.4 MEQ/L (3.5-5.1) Salicylates Level LESS THAN 1.7 MG/DL Phosphorus Level 1.8 MG/DL (2.5-4.9) Acetaminophen Level 6.4 MCG/ML (10.0-30.0) LESS THAN 2.0 MCG/ML LESS THAN 2.0 MCG/ML Total Bilirubin 1.1 MG/DL (0.2-1.0) Test 06/12/17 04:32 Hematocrit 38.7 % (39.0-51.0) Prothrombin Time 16.6 SEC (9.8-11.6) Blood Urea Nitrogen 2 MG/DL (7-18) Albumin 2.8 GM/DL (3.4-5.0) Phosphorus Level 1.7 MG/DL (2.5-4.9) Aspartate Amino Transf (AST/SGOT) 678 U/L (15-37) Alanine Aminotransferase (ALT/SGPT) 2046 U/L (12-78) Hospital Course Hospital Course: This is a 26yM with no significant past medical history who presented to the emergency department with abdominal pain after intentional tylenol overdose attempt. he states that he feels depressed, endorses suicidal ideation. He states he took 100 tabs of 500mg tylenol around 10am 06/09, and then an additional 100 tabs at 1400 on 06/10. He endorses generalized crampy abdominal pain. denies constipation, diarrhea, blood in stool or hematemesis. states he has never had any prior suicide attempts. In the emergency department, his LFTs were elevated and have uptrended. his INR was 1.9 initially. MELD is currently 12. tylenol level was elevated at 198 and repeat is currently pending 06/12: LFTs peaked and downtrended. abdominal pain has improved. tylenol level now undetectable. mucomyst still running, almost completed second 16-hour run. Discussed with Dr. Davalos: he would like patient transferred to med/psych unit so he can continue to follow him for psychiatric illness. Patient continues to need at least q12hr LFTs until consistently < 1000 and needs at least 1 more bag of 16h mucomyst. I discussed with Dr. Cantu who has agreed to follow the patient medically while in med/psych unit. Pt Condition on Discharge: Stable Discharge Disposition: Disch to Another Hospital Discharge Instructions DIET: Follow Instructions for: As Tolerated, No Restrictions Activities you can perform: Regular-No Restrictions Corey Arias MD June 12, 2017 10:02
[2017-06-12] MEDS: PANTOPRAZOLE SODIUM 40 MG VIAL IV PUSH SCH (10:46)
[2017-06-12 11:06] LABS: ACETAMINOPHEN LESS THAN 2.0 MCG/ML (10.0-30.0)
[2017-06-12 12:50] LABS: CHLORIDE 107 MEQ/L (98-107); SODIUM (NA) 139 MEQ/L (136-145)
[2017-06-12 12:53] LABS: ALBUMIN 2.8 GM/DL (3.4-5.0); BICARBONATE 26.7 MEQ/L (21.0-32.0); CALCIUM 8.6 MG/DL (8.5-10.1); GLUCOSE,RANDOM 111 MG/DL (74-106)
[2017-06-12 12:54] LABS: BLOOD UREA NITROGEN 3 MG/DL (7-18)
[2017-06-12 12:56] LABS: AST (GOT) 397 U/L (15-37); INTERNATIONAL NORMALIZED RATIO 1.5 RATIO; PROTHROMBIN TIME - PATIENT 14.7 SEC (9.8-11.6)
[2017-06-12 12:57] LABS: CREATININE 0.64 MG/DL (0.60-1.30); GLOMERULAR FILTRATION RATE 154 ML/MIN (>89)
[2017-06-12 12:58] LABS: TOTAL BILIRUBIN ADULT 0.8 MG/DL (0.2-1.0); TOTAL PROTEIN 6.4 GM/DL (6.4-8.2)
[2017-06-12 12:59] LABS: ALKALINE PHOSPHATASE 57 U/L (45-117)
[2017-06-12 13:04] LABS: ALT (GPT) 1690 U/L (12-78)
== END 2017-06-12 14:13 | DRG 918 ==
LOC: PHED 18:07 → PHEDA 20:04 → PHICU 21:55
PROVIDERS: ADMIT Internal Medicine Critical Care Medicine; ATTEND Internal Medicine Critical Care Medicine
DX: T39.1X2A Poisoning by 4-Aminophenol derivatives, intentional self-harm, initial encounter (principal); D68.4 Acquired coagulation factor deficiency; K71.2 Toxic liver disease with acute hepatitis; F32.9 Major depressive disorder, single episode, unspecified; Z88.5 Allergy status to narcotic agent
CPT/HCPCS: 80053; 80307; 82948; 83605; 83735; 84100; 84443; 85025; 85610; 85730; 87641; 93005; 96365; 96375; C9113; J0132; J1170; J2060; J2405; J2765; J3430; J7030; J7050; J7060; J7070

== ENCOUNTER 2017-06-12 11:29 | Inpatient (IN) | payer OTHER ==
[~2017-06-12] VITALS: Ht 182.9 cm; Wt 137.3 kg
[2017-06-12 08:00] VITALS: O2SAT 98
[2017-06-12] MEDS ORDERED: LORazepam 2 MG/ML VIAL IM PRN ×2 (15:15)
[2017-06-12] MEDS ORDERED: LORazepam 0.5 MG TAB PO PRN (15:15)
[2017-06-12] MEDS ORDERED: LORazepam 1 MG TAB PO PRN (15:15)
[2017-06-12] MEDS ORDERED: ACETAMINOPHEN 325 MG TAB PO PRN (15:15)
[2017-06-12] MEDS ORDERED: MAGNESIUM HYDROXIDE SUSP 30 ML CUP PO PRN (15:15)
[2017-06-12 17:48] LABS: AST (GOT) 326 U/L (15-37); BICARBONATE 24.4 MEQ/L (21.0-32.0); BLOOD UREA NITROGEN 4 MG/DL (7-18); CALCIUM 8.6 MG/DL (8.5-10.1); CHLORIDE 106 MEQ/L (98-107); CREATININE 0.72 MG/DL (0.60-1.30); GLOMERULAR FILTRATION RATE 134 ML/MIN (>89); GLUCOSE,RANDOM 97 MG/DL (74-106); SODIUM (NA) 140 MEQ/L (136-145)
[2017-06-12 17:57] LABS: ALKALINE PHOSPHATASE 62 U/L (45-117); ALT (GPT) 1672 U/L (12-78); TOTAL BILIRUBIN ADULT 0.6 MG/DL (0.2-1.0); TOTAL PROTEIN 6.6 GM/DL (6.4-8.2)
[2017-06-12 18:25] VITALS: BP 150/94; PULSE 93; RESP 16; TEMP 99.6; O2SAT 98
[2017-06-12] MEDS: REMOVE OLD NICODERM (NICOTINE) PATCH T-DERMAL SCH (21:00)
[2017-06-13 06:31] VITALS: BP 168/74; PULSE 80; RESP 17; TEMP 97.8; O2SAT 98
[2017-06-13 06:50] LABS: AST (GOT) 199 U/L (15-37); BICARBONATE 27.3 MEQ/L (21.0-32.0); BLOOD UREA NITROGEN 6 MG/DL (7-18); CALCIUM 8.7 MG/DL (8.5-10.1); CHLORIDE 108 MEQ/L (98-107); CHOLESTEROL 102 MG/DL (120-200); CREATININE 0.67 MG/DL (0.60-1.30); GLOMERULAR FILTRATION RATE 146 ML/MIN (>89); GLUCOSE,RANDOM 96 MG/DL (74-106); SODIUM (NA) 142 MEQ/L (136-145); TRIGLYCERIDES 163 MG/DL (42-150)
[2017-06-13 06:58] LABS: ALKALINE PHOSPHATASE 54 U/L (45-117); ALT (GPT) 1329 U/L (12-78); CHOLESTEROL/ HDL RATIO 7.23 RATIO; HDL CHOLESTEROL 14.1 MG/DL (40.0-60.0); LDL CHOLESTEROL 55 MG/DL (0-99); TOTAL BILIRUBIN ADULT 0.6 MG/DL (0.2-1.0); TOTAL PROTEIN 6.7 GM/DL (6.4-8.2)
[2017-06-13] MEDS: NICOTINE 21 MG/24 HR PATCH T-DERMAL SCH (09:00)
--- NOTE | 2017-06-13 09:46 | HHI.PR ---
Subjective Remarks pt transferred from ICU yesterday after admission for Suicide attempt and tylenol OD. denies any abdomen pain and no n/v/d. he is fixated on d/c and getting back to work today. Objective Vitals heart reg lung cta abd s/nt ext no edema Vital Signs Date Time Temp Pulse Resp B/P (MAP) Pulse Ox O2 Delivery O2 Flow Rate FiO2 06/13/17 06:31 97.8 80 17 168/74 (105) 98 06/12/17 18:25 99.6 93 16 150/94 (112) 98 06/13/17 06/13/17 06/14/17 15:00 23:00 07:00 Intake Total 480 ml Balance 480 ml Intake Oral 480 ml Result Diagram: 06/13/17 0547 A/P Problem List: (1) Tylenol overdose ICD Codes: T39.1X1A - Poisoning by 4-Aminophenol derivatives, accidental ( unintentional), initial encounter Status: Acute Plan: 1. 26 yo s/p tylenol overdose(200 500mg tabs) severe elevation of LFT now with trending down. 2. suicide attempt. pt completing his last bag of acetylcysteine today. monitor LFT..trending down.medically appears stable. Colin Cantu MD June 13, 2017 09:46
[2017-06-13] MEDS ORDERED: SERTRALINE HCL 50 MG TAB PO ONE (12:30)
--- NOTE | 2017-06-13 12:35 | HHI.HP ---
Provisional Diagnosis Admission Date June 12, 2017 at 14:14 [place] I. Major depressive disorder, single episode, severe without psychotic features Certification of Person's Competence To Provide Express and Informed Consent I have personally examined Stewart Rehman , a person being served at [facility] on, June 13, 2017 12:30. Express and informed consent means consent voluntarily given in writing, by a competent person, after sufficient explanation and disclosure of the subject matter involved to enable the person to make a knowing and willful decision without any element of force, fraud, deceit, duress, or other form of constraint or coercion. This person is 18 years of age or older, is not now known to be incompetent to consent to treatment with a guardian advocate, and does not have a health care surrogate or proxy currently making medical treatment decisions. I have found this person to be one of the following: [] Competent to provide express and informed consent, as defined above, for voluntary admission to this facility and is competent to provide express and informed consent for treatment. He/she has the consistent capacity to make well reasoned, willful, and knowing decisions concerning his or her medical or mental health treatment. The person fully and consistently understands the purpose of the admission for examination/placement and is fully capable of personally exercising all rights assured under [place]xxx] Incompetent to provide express and informed consent to voluntary admission , and this is incompetent to provide express and informed consent to treatment. The person must be transferred to involuntary status and a petition for a guardian advocate filed with the Circuit Court. [] Refusing to provide express and informed consent to voluntary admission but is competent to provide express and informed consent for treatment. The person must be discharged or transferred to involuntary status. Form shall be completed within 24 hours of a person's arrival at the receiving facility and filed in the clinical record of each person: 1. Admitted on a voluntary basis 2. Permitted to provide express and informed consent to his/her own treatment 3. Allowed to transfer from involuntary to voluntary status 4. Prior to permitting a person to consent to his or her own treatment after having been previously found incompetent to consent to treatment. History of Present Illness Capacity: Has Capacity HPI Patient is a 25-year-old man, but currently , unemployed, with a past psychiatric history, discharge, he explained some of previous diagnosis of ADHD as a child, no previous psychiatric admissions, no previous suicide attempts or self-injurious behavior, no substance use history, who was recently admitted to the medical floor status post overdose with Tylenol in a suicide attempt, stabilized in ICU and now transferred to the inpatient psychiatry unit patient for further evaluation and management. Patient was seen on the medical floor by psychiatric commercial solar sales consultant, noted: The patient is a 26-year-old man, domiciled with his in [place], he is but , no kids, employed, with good family and social support, no previous psychiatric history, no previous suicide attempts, no previous psychiatric hospitalizations, denies the use of alcohol and illegal drugs, no significant medical history, who allegedly, due to recent disagreement with , patient took 100 tablets of 500 mg tylenol tablets at around 1000 on 06/09/17. He then took another 100 tablets of 500 mg tylenol tablets around 1400 on 06/10/17. He then reportedly began to feel nauseous and had crampy and pain, regretted taking the tylenol; called his twin brother, which then led to him coming to the ED. He was admitted on 06/10/2017. , Siu acted due to suicidal ideation, and started on acetylcysteine. Mental status has remained intact (GCS 15) and pain improved since admit. Also remained hemodynamically stable. We were consulted this AM. he does not seem to have other values that would cause him to meet Mike's [place] criteria for acetaminophen toxicity. Would continue to monitor his exam and labs. We will at least follow his labs for now also and reassess linically as warranted. case d/ w Dr Rajiv Niño, Liver Transplant Director. Patient was consulted to psychiatry to assess suicide attempt. EMR was reviewed. Collateral information from his 2 sisters, [place] and Geno, was obtained. On psychiatric evaluation today the patient is found calm, cooperative, tearful and regretful about his recent actions. The patient reports that after his left him about a week ago he has been feeling increasingly depressed, with increased sense of hopelessness, guiltiness, worthlessness, feeling that he is a failure, with lack of motivation, poor sleep, poor appetite, constant intrusive thoughts about being a bad person with suicidal thoughts. The patient reports that he had already suicidal thought about a month ago when the problems with his started. He says that finally yesterday, after an argument with his , he got desperate and he overdosed "with intentions to ". He now regrets his actions. He is happy to be alive, I am hopeful that he can have a second opportunity in life to 5 for what he loves. The patient reports that he has an excellent family support, good friends, his sisters and parents "I just great with me". He reports that he feels like "I know that what I did was really bad, but now is done, and now I realize how important it is my life". At this moment the patient denies suicidal and homicidal ideation , he denies visual and auditory hallucinations. The patient also denies pain, distress, he does endorse nausea and some abdominal pain. The patient is fully oriented 3, logical, coherent and relevant. No gross cognitive impairment are present, no attention deficit, no fluctuation of consciousness at this moment. The patient denies the use of illegal drugs and alcohol. Patient was seen and evaluated today noted B, cooperative. Patient states that he had been very distracted recently with his stating "I always need to be doing something else at I do not spend time with her". Patient states that he had "messed up" before he had starting having arguments with his for the past month. He reports that he had been from her the past week and reports having been feeling depressed recently due to recent separation. Patient denies having had any difficulty with sleep, appetite or feeling depressed prior to this events but reports having had difficulty concentration since childhood. Patient mentions that prior to his overdose he had been having suicide ideations a day prior to suicide attempt which she had went to [facility] and bought 2 bottles of Tylenol. Patient mentions that he had went to go see his brother needs to And upon arriving home had taken 1 bottle of Tylenol with the expectation that he was going to but found that he had woken up later that night with no symptoms and had been in contact with his which she had breakfast with her the next morning but again argued. Patient states that after left post argument he went back to his home and took the other bottle of Tylenol again to end his life. He reports having started to feel physically sick and called his brother which had brought into the hospital. He states that his initially was present upon his arrival but has not returned since. He mentions having spoken to her over the phone this morning and that she was upset stating that he was being selfish due to his recent suicide attempt. Patient perseverative on returning back to work stating "they need me for this project" he continues to have limited insight into his recent suicide attempt. Patient this time reports "feeling great" denies any SI or HI or AVH or delusions at this time. Collateral information obtained by patient's sister to nursing staff has stated that patient's had asked his sister to leaf size picker all the belongings from the home to have them removed which sister states have not told the patient yet was unsure of how to let him know. Family psychiatric history: Denies Past psychiatric history: Previous psychiatric diagnoses of ADHD as a child, no previous psychiatric admissions, no previous suicide attempt or self-injurious behavior. No history of abuse. Past medical history: Denies Allergies: Codeine Substance use history: Denies Social history: domiciled with , no children, employed at [email or web address], no history or asked to firearms. Denies any legal history. Review of Systems Except as stated in HPI: all other systems reviewed are Neg Past Psych History Psychological trauma history Denies Violence risk - others (6 mos) Low Violence risk - self (6 mos) Elevated due to recent suicide attempt. Substance Abuse History Drugs/Alcohol past 12 months Denies Past Family Social History Coded Allergies: codeine (Verified Allergy, Severe, throat sweling, hallucinations, 06/10/17 ) No Active Prescriptions or Reported Meds Current Medications Medications (Trade) Dose Ordered Sig/Jen Route Start Time Stop Time Status Last Admin (Ativan) 1 mg Q6H PRN PO 06/12/17 15:15 (Ativan Inj) 1 mg Q6H PRN IM 06/12/17 15:15 (Tylenol) 650 mg Q4H PRN PO 06/12/17 15:15 (Milk Of Magnesia Liq) 30 ml DAILY PRN PO 06/12/17 15:15 (Mag-Al Plus Susp Liq) 30 ml Q6H PRN PO 06/12/17 15:15 (Habitrol 21 Mg Patch.24 Hr) 1 patch DAILY T-DERMAL 06/13/17 09:00 Miscellaneous Information 1 HS T-DERMAL 06/12/17 21:00 Acetylcysteine 28162 mg/Dextrose 1,050 ml @ 62.5 mls/hr ONCE ONCE IV 06/13/17 12:40 06/14/17 05:27 06/13/17 04:56 Family Psych History Denies Social History domiciled with , no children, employed at [email or web address], no history or asked to firearms. Denies any legal history. Patient's Strengths (min. 2) Verbal and communicative Physical Exam Patient not noted to be in acute distress, no gross motor abnormalities, no tremors or EPS, no noted psychomotor retardation or agitation. Vital Signs Vital Signs Date Time Temp Pulse Resp B/P (MAP) Pulse Ox O2 Delivery O2 Flow Rate FiO2 06/13/17 06:31 97.8 80 17 168/74 (105) 98 06/12/17 08:00 21 I/O 06/13/17 06/13/17 06/14/17 08:00 16:00 00:00 Intake Total 480 ml 480 ml Balance 480 ml 480 ml Lab Results Labs reviewed Test 06/12/17 16:46 06/12/17 20:46 06/13/17 05:47 Blood Urea Nitrogen 4 MG/DL 6 MG/DL Creatinine 0.72 MG/DL 0.67 MG/DL Random Glucose 97 MG/DL 96 MG/DL Total Protein 6.6 GM/DL 6.7 GM/DL Albumin 3.0 GM/DL 3.0 GM/DL Calcium Level 8.6 MG/DL 8.7 MG/DL Alkaline Phosphatase 62 U/L 54 U/L Aspartate Amino Transf (AST/SGOT) 326 U/L 199 U/L Alanine Aminotransferase (ALT/SGPT) 1672 U/L 1329 U/L Total Bilirubin 0.6 MG/DL 0.6 MG/DL Sodium Level 140 MEQ/L 142 MEQ/L Potassium Level 3.6 MEQ/L 3.5 MEQ/L Chloride Level 106 MEQ/L 108 MEQ/L Carbon Dioxide Level 24.4 MEQ/L 27.3 MEQ/L Anion Gap 10 MEQ/L 7 MEQ/L Estimat Glomerular Filtration Rate 134 ML/MIN 146 ML/MIN Phosphorus Level 2.1 MG/DL Triglycerides Level 163 MG/DL Cholesterol Level 102 MG/DL LDL Cholesterol 55 MG/DL HDL Cholesterol 14.1 MG/DL Cholesterol/HDL Ratio 7.23 RATIO Mental Status Examination Appearance: Appropriate Consciousness: Alert Orientation: x4 Motor Activity: Normal gait Speech: Unremarkable Language: Adequate Fund of Knowledge: Inadequate Attention and Concentration: Adequate Memory: Unremarkable Mood: Sad Affect: Sad Thought Process & Associations: Linear Thought Content: Appropriate Hallucination Type: None Delusion Type: None Suicidal Ideation: Yes (Denies at this time) Suicidal Plan: No Suicidal Intention: Yes Homicidal Ideation: No Homicidal Plan: No Homicidal Intention: No Insight: Poor Judgment: Poor Assessment & Plan Problem List: (1) Major depressive disorder, single episode ICD Codes: F32.9 - Major depressive disorder, single episode, unspecified Status: Acute Assessment & Plan Estimated LOS: 5-7 days. Patient is a 25-year-old man, but currently , unemployed, with a past psychiatric history, discharge, he explained some of previous diagnosis of ADHD as a child, no previous psychiatric admissions, no previous suicide attempts or self-injurious behavior , no substance use history, who was recently admitted to the medical floor status post overdose with Tylenol in a suicide attempt, stabilized in ICU and now transferred to the inpatient psychiatry unit patient for further evaluation and management. Patient this time with limited insight into the dangerousness of his recent suicide attempt, continues to minimize current symptoms. Patient' s will start sertraline 25 mg p.o. 1 with 50 mg p.o. daily thereafter. Patient to continue recommendations as per prior medical team. Patient to continue to monitor mood and behavior. Collateral information pending from family. Petition for involuntary hospitalization started, second opinion requested. Discharge planning in progress. Discharge Planning Patient return back to his residence was psychiatrically stable. Problem Qualifiers (1) Major depressive disorder, single episode: Qualified Codes: F32.2 - Major depressive disorder, single episode, severe without psychotic features Mario Stanley MD June 13, 2017 12:35
[2017-06-13] MEDS ORDERED: ACETYLCYSTEINE INJ 10,000 MG in DEXTROSE 5% IN WATE 1000ML INJ 1,000 ML IV ONE ×2 (12:40)
--- NOTE | 2017-06-13 12:58 | PD.PSY.CON ---
Provisional Diagnosis Admission Date June 12, 2017 at 14:14 [place] I. Major depressive disorder, single episode, severe without psychotic features History of Present Illness Service Psychiatry Consult Requested By Dr. Stanley Reason for Consult Second opinion Primary Care Physician Unknown HPI Patient is a 25-year-old man, but currently , unemployed, with a past psychiatric history, discharge, he explained some of previous diagnosis of ADHD as a child, no previous psychiatric admissions, no previous suicide attempts or self-injurious behavior, no substance use history, who was recently admitted to the medical floor status post overdose with Tylenol in a suicide attempt, stabilized in ICU and now transferred to the inpatient psychiatry unit patient for further evaluation and management. Consulted to me for second opinion. I met the patient earlier when he was admitted in the ICU. On evaluation today he seems to be doing better. He is happy that he did not need a liver transplant. Patient is quite focused and be discharged. Seems to be poorly insightful about his recent stressors and situation. He denies suicidal and was ideation, he denies visual and auditory hallucinations. Review of Systems Constitutional: DENIES: Diaphoretic episodes, Fatigue, Fever, Weight gain, Weight loss, Chills, Dizziness, Change in appetite, Night Sweats Endocrine: DENIES: Heat/cold intolerance, Polydipsia, Polyuria, Polyphagia Eyes: DENIES: Blurred vision, Diplopia, Eye inflammation, Eye pain, Vision loss , Photosensitivity, Double Vision Ears, nose, mouth, throat: DENIES: Tinnitus, Hearing loss, Vertigo, Nasal discharge, Oral lesions, Throat pain, Hoarseness, Ear Pain, Running Nose, Epistaxis, Sinus Pain, Toothache, Odynophagia Respiratory: DENIES: Apneas, Cough, Snoring, Wheezing, Hemoptysis, Sputum production, Shortness of breath Cardiovascular: DENIES: Chest pain, Palpitations, Syncope, Dyspnea on Exertion , PND, Lower Extremity Edema, Orthopnea, Claudication Gastrointestinal: DENIES: Abdominal pain, Black stools, Bloody stools, Constipation, Diarrhea, Nausea, Vomiting, Difficulty Swallowing, Anorexia Genitourinary: DENIES: Sexual dysfunction, Urinary frequency, Urinary incontinence, Urgency, Hematuria, Dysuria, Nocturia, Penile Discharge, Testicular Pain, Testicular Swelling Musculoskeletal: DENIES: Joint pain, Muscle aches, Stiffness, Joint Swelling, Back pain, Neck pain Integumentary: DENIES: Abnormal pigmentation, Nail changes, Pruritus, Rash Hematologic/lymphatic: DENIES: Bruising, Lymphadenopathy Immunologic/allergic: DENIES: Eczema, Urticaria Neurologic: DENIES: Abnormal gait, Headache, Localized weakness, Paresthesias, Seizures, Speech Problems, Tremor, Poor Balance Past Family Social History Coded Allergies: codeine (Verified Allergy, Severe, throat sweling, hallucinations, 06/10/17 ) No Active Prescriptions or Reported Meds Current Medications Medications (Trade) Dose Ordered Sig/Jen Route Start Time Stop Time Status Last Admin (Ativan) 1 mg Q6H PRN PO 06/12/17 15:15 (Ativan Inj) 1 mg Q6H PRN IM 06/12/17 15:15 (Tylenol) 650 mg Q4H PRN PO 06/12/17 15:15 (Milk Of Magnesia Liq) 30 ml DAILY PRN PO 06/12/17 15:15 (Mag-Al Plus Susp Liq) 30 ml Q6H PRN PO 06/12/17 15:15 (Habitrol 21 Mg Patch.24 Hr) 1 patch DAILY T-DERMAL 06/13/17 09:00 Miscellaneous Information 1 HS T-DERMAL 06/12/17 21:00 Acetylcysteine 57057 mg/Dextrose 1,050 ml @ 62.5 mls/hr ONCE ONCE IV 06/13/17 12:40 06/14/17 05:27 06/13/17 04:56 (Zoloft) 50 mg DAILY PO 06/14/17 09:00 Patient's Strengths (min. 2) Verbal and communicative Physical Exam Vital Signs Vital Signs Date Time Temp Pulse Resp B/P (MAP) Pulse Ox O2 Delivery O2 Flow Rate FiO2 06/13/17 06:31 97.8 80 17 168/74 (105) 98 06/12/17 08:00 21 I/O 06/13/17 06/13/17 06/14/17 08:00 16:00 00:00 Intake Total 480 ml 480 ml Balance 480 ml 480 ml Lab Results Test 06/12/17 16:46 06/12/17 20:46 06/13/17 05:47 Blood Urea Nitrogen 4 MG/DL 6 MG/DL Creatinine 0.72 MG/DL 0.67 MG/DL Random Glucose 97 MG/DL 96 MG/DL Total Protein 6.6 GM/DL 6.7 GM/DL Albumin 3.0 GM/DL 3.0 GM/DL Calcium Level 8.6 MG/DL 8.7 MG/DL Alkaline Phosphatase 62 U/L 54 U/L Aspartate Amino Transf (AST/SGOT) 326 U/L 199 U/L Alanine Aminotransferase (ALT/SGPT) 1672 U/L 1329 U/L Total Bilirubin 0.6 MG/DL 0.6 MG/DL Sodium Level 140 MEQ/L 142 MEQ/L Potassium Level 3.6 MEQ/L 3.5 MEQ/L Chloride Level 106 MEQ/L 108 MEQ/L Carbon Dioxide Level 24.4 MEQ/L 27.3 MEQ/L Anion Gap 10 MEQ/L 7 MEQ/L Estimat Glomerular Filtration Rate 134 ML/MIN 146 ML/MIN Phosphorus Level 2.1 MG/DL Triglycerides Level 163 MG/DL Cholesterol Level 102 MG/DL LDL Cholesterol 55 MG/DL HDL Cholesterol 14.1 MG/DL Cholesterol/HDL Ratio 7.23 RATIO Mental Status Examination Appearance: Appropriate Consciousness: Alert Orientation: x4 Motor Activity: Normal gait Speech: Unremarkable Language: Adequate Fund of Knowledge: Inadequate Attention and Concentration: Adequate Memory: Unremarkable Mood: Sad Affect: Sad Thought Process & Associations: Linear Thought Content: Appropriate Hallucination Type: None Delusion Type: None Suicidal Ideation: Yes (Denies at this time) Suicidal Plan: No Suicidal Intention: Yes Homicidal Ideation: No Homicidal Plan: No Homicidal Intention: No Insight: Poor Judgment: Poor Assessment & Plan Problem List: (1) Major depressive disorder, single episode ICD Codes: F32.9 - Major depressive disorder, single episode, unspecified Status: Acute Assessment & Plan: I have seen and examined this patient, reviewed documentation, discussed the case with Dr. Stanley, I agree and concur with his assessment and plan. Assessment & Plan Estimated LOS: days Problem Qualifiers (1) Major depressive disorder, single episode: Qualified Codes: F32.2 - Major depressive disorder, single episode, severe without psychotic features Barrera Davalos MD June 13, 2017 12:58
[2017-06-13 15:44] LABS: HEMOGLOBIN A1C 5.2 % (4.3-6.0)
[2017-06-13 18:22] LABS: ALBUMIN 3.4 GM/DL (3.4-5.0); AST (GOT) 143 U/L (15-37); BICARBONATE 27.3 MEQ/L (21.0-32.0); BLOOD UREA NITROGEN 8 MG/DL (7-18); CALCIUM 9.5 MG/DL (8.5-10.1); CHLORIDE 105 MEQ/L (98-107); CREATININE 0.86 MG/DL (0.60-1.30); GLOMERULAR FILTRATION RATE 109 ML/MIN (>89); GLUCOSE,RANDOM 95 MG/DL (74-106); SODIUM (NA) 143 MEQ/L (136-145)
[2017-06-13 18:23] VITALS: BP 187/113; PULSE 73; RESP 18; TEMP 97; TEMP 97.9; O2SAT 98
[2017-06-13 18:25] VITALS: BP 154/78; PULSE 89
[2017-06-13 18:30] LABS: ALKALINE PHOSPHATASE 60 U/L (45-117); ALT (GPT) 1169 U/L (12-78); TOTAL BILIRUBIN ADULT 0.5 MG/DL (0.2-1.0); TOTAL PROTEIN 7.5 GM/DL (6.4-8.2)
[2017-06-13] MEDS: REMOVE OLD NICODERM (NICOTINE) PATCH T-DERMAL SCH (21:00)
[2017-06-14 06:01] VITALS: BP 146/70; PULSE 70; RESP 18; TEMP 98.2
[2017-06-14 06:11] LABS: ALBUMIN 3.1 GM/DL (3.4-5.0); AST (GOT) 108 U/L (15-37); BICARBONATE 26.9 MEQ/L (21.0-32.0); BLOOD UREA NITROGEN 9 MG/DL (7-18); CALCIUM 8.9 MG/DL (8.5-10.1); CHLORIDE 107 MEQ/L (98-107); CREATININE 0.78 MG/DL (0.60-1.30); GLOMERULAR FILTRATION RATE 122 ML/MIN (>89); GLUCOSE,RANDOM 93 MG/DL (74-106); SODIUM (NA) 141 MEQ/L (136-145)
[2017-06-14 06:12] LABS: ALT (GPT) 886 U/L (12-78)
[2017-06-14 06:14] LABS: ALKALINE PHOSPHATASE 53 U/L (45-117); TOTAL BILIRUBIN ADULT 0.6 MG/DL (0.2-1.0); TOTAL PROTEIN 6.8 GM/DL (6.4-8.2)
--- NOTE | 2017-06-14 08:39 | HHI.PR ---
Subjective Remarks feels well. says he will be here for another week. Objective Vitals heart reg lung cta abd s/nt ext no edema Vital Signs Date Time Temp Pulse Resp B/P (MAP) Pulse Ox O2 Delivery O2 Flow Rate FiO2 06/14/17 06:01 98.2 70 18 146/70 (95) 06/13/17 18:25 89 154/78 (103) 06/13/17 18:23 97.0 06/13/17 18:23 97.9 73 18 187/113 (137) 98 Result Diagram: 06/14/17 0532 A/P Problem List: (1) Tylenol overdose ICD Codes: T39.1X1A - Poisoning by 4-Aminophenol derivatives, accidental ( unintentional), initial encounter Status: Acute Plan: 1. 26 yo s/p tylenol overdose(200 500mg tabs) severe elevation of LFT now with trending down. 2. suicide attempt. pt completed his last bag of acetylcysteine LFT trending down.medically appears stable. will check labs again on 06/16 Colin Cantu MD June 14, 2017 08:39
[2017-06-14] MEDS: NICOTINE 21 MG/24 HR PATCH T-DERMAL SCH (08:45)
[2017-06-14] MEDS: SERTRALINE HCL 50 MG TAB PO SCH (08:45)
[2017-06-14] MEDS: REMOVE OLD NICODERM (NICOTINE) PATCH T-DERMAL SCH (08:46)
[2017-06-14 17:28] VITALS: BP 95/54; PULSE 91; RESP 18; TEMP 98.3; O2SAT 97
[2017-06-14] MEDS: ALUMINUM/MAGNESIUM/SIMETH 30 ML CUP PO PRN (18:33)
--- NOTE | 2017-06-14 23:10 | HHI.PYPN ---
Subjective Remarks Patient seen for follow up; chart reviewed. Discussion nursing staff reported the patient slept well in mood has been "good". Patient was found ambulating on unit noted B, cooperative. Patient states that he had been sleeping well, feeling rested, mood has been "the same" endorsing feeling sad due to current circumstances with his . He mentions that he has spoken with his yesterday over the phone and was told that his belongings be been moved out of the apartment. Patient states feeling stressed about his employ as well as where he would be staying in the interim. Patient states that he regrets having made a suicide attempt. Denies any suicide ideations today. Review of Systems Except as stated in HPI: all other systems reviewed are Neg Mental Status Examination Appearance: Appropriate Consciousness: Alert Orientation: x4 Motor Activity: Normal gait Speech: Unremarkable Language: Adequate Fund of Knowledge: Inadequate Attention and Concentration: Adequate Memory: Unremarkable Mood: Sad Affect: Sad Thought Process & Associations: Linear Thought Content: Appropriate Hallucination Type: None Delusion Type: None Suicidal Ideation: Yes (Denies at this time) Suicidal Plan: No Suicidal Intention: No Homicidal Ideation: No Homicidal Plan: No Homicidal Intention: No Insight: Poor Judgment: Poor Results Labs Labs reviewed Test 06/14/17 05:32 Blood Urea Nitrogen 9 MG/DL Creatinine 0.78 MG/DL Random Glucose 93 MG/DL Total Protein 6.8 GM/DL Albumin 3.1 GM/DL Calcium Level 8.9 MG/DL Alkaline Phosphatase 53 U/L Aspartate Amino Transf (AST/SGOT) 108 U/L Alanine Aminotransferase (ALT/SGPT) 886 U/L Total Bilirubin 0.6 MG/DL Sodium Level 141 MEQ/L Potassium Level 3.6 MEQ/L Chloride Level 107 MEQ/L Carbon Dioxide Level 26.9 MEQ/L Anion Gap 7 MEQ/L Estimat Glomerular Filtration Rate 122 ML/MIN Vitals/IOs Vital Signs Date Time Temp Pulse Resp B/P (MAP) Pulse Ox O2 Delivery O2 Flow Rate FiO2 06/14/17 17:28 98.3 91 18 95/54 (68) 97 06/12/17 08:00 21 Intake and Output 06/14/17 06/14/17 06/15/17 08:00 16:00 00:00 Intake Total 240 ml 240 ml Balance 240 ml 240 ml Assessment & Plan Problem List: (1) Major depressive disorder, single episode ICD Codes: F32.9 - Major depressive disorder, single episode, unspecified Status: Acute Assessment & Plan Patient this time continues report feeling depressed now being more open about how his recent separation is affecting him. Patient noted to be more dysphoric today due to recent news of his moving his belongings from the apartment. We will continue to monitor mood and behavior. Social increase to 50 mg daily for depression. Continue recommendations as per primary medical team. discharge planning in progress. Justification for Cont. Inpt. At risk of further decompensation at lower level care. Discharge Planning To be determined Problem Qualifiers (1) Major depressive disorder, single episode: Qualified Codes: F32.2 - Major depressive disorder, single episode, severe without psychotic features Mario Stanley MD June 14, 2017 23:10
[2017-06-15 06:08] VITALS: BP 154/87; PULSE 71; RESP 18; TEMP 98.3; O2SAT 98
--- NOTE | 2017-06-15 08:24 | HHI.PYPN ---
Subjective Remarks Patient seen for follow, chart reviewed. Discussion nursing staff reported the patient slept better, LFTs are improving. Patient was found sitting in hospital bed eating breakfast noted B, cooperative. Patient states that he is feeling "better" states that he plans to stay with his [id number] and wants to "work on myself" which he recanted his goals. Patient reports having slept well, denies having any suicide ideations at this time. Patient continues report feeling sad in general due to his current relationship discord with his . Review of Systems Except as stated in HPI: all other systems reviewed are Neg Mental Status Examination Appearance: Appropriate Consciousness: Alert Orientation: x4 Motor Activity: Normal gait Speech: Unremarkable Language: Adequate Fund of Knowledge: Inadequate Attention and Concentration: Adequate Memory: Unremarkable Mood: Sad Affect: Sad Thought Process & Associations: Linear Thought Content: Appropriate Hallucination Type: None Delusion Type: None Suicidal Ideation: Yes (Denies at this time) Suicidal Plan: No Suicidal Intention: No Homicidal Ideation: No Homicidal Plan: No Homicidal Intention: No Insight: Poor Judgment: Poor Results Vitals/IOs Vital Signs Date Time Temp Pulse Resp B/P (MAP) Pulse Ox O2 Delivery O2 Flow Rate FiO2 06/15/17 06:08 98.3 71 18 154/87 (109) 98 06/12/17 08:00 21 Intake and Output 06/15/17 06/15/17 06/16/17 08:00 16:00 00:00 Intake Total 0 ml Balance 0 ml Assessment & Plan Problem List: (1) Major depressive disorder, single episode ICD Codes: F32.9 - Major depressive disorder, single episode, unspecified Status: Acute Assessment & Plan Patient this time continues with depressed mood but states it is improving, denying any suicide ideations and appears to be more future oriented at this time. We will continue current treatment, continue to monitor mood and behavior. Discharge planning in progress. Justification for Cont. Inpt. At risk of further decompensation at lower level care. Discharge Planning Patient likely to be discharged to [id number]'s residence Problem Qualifiers (1) Major depressive disorder, single episode: Qualified Codes: F32.2 - Major depressive disorder, single episode, severe without psychotic features Mario Stanley MD June 15, 2017 08:24
[2017-06-15] MEDS: NICOTINE 21 MG/24 HR PATCH T-DERMAL SCH (08:25)
[2017-06-15] MEDS: SERTRALINE HCL 50 MG TAB PO SCH (08:32)
[2017-06-15] MEDS: ALUMINUM/MAGNESIUM/SIMETH 30 ML CUP PO PRN ×2 (09:02→17:59)
[2017-06-15 18:25] VITALS: BP 176/85; PULSE 77; RESP 20; TEMP 99.6; O2SAT 97
[2017-06-15] MEDS: REMOVE OLD NICODERM (NICOTINE) PATCH T-DERMAL SCH (19:57)
[2017-06-15 22:15] VITALS: BP 150/77
[2017-06-16 06:27] VITALS: BP 133/70; PULSE 82; RESP 18; TEMP 97.8; O2SAT 96
[2017-06-16 08:40] LABS: ALBUMIN 3.6 GM/DL (3.4-5.0); ALT (GPT) 462 U/L (12-78); AST (GOT) 50 U/L (15-37); BICARBONATE 29.6 MEQ/L (21.0-32.0); BLOOD UREA NITROGEN 13 MG/DL (7-18); CALCIUM 9.4 MG/DL (8.5-10.1); CHLORIDE 104 MEQ/L (98-107); CREATININE 0.89 MG/DL (0.60-1.30); GLOMERULAR FILTRATION RATE 105 ML/MIN (>89); GLUCOSE,RANDOM 91 MG/DL (74-106); SODIUM (NA) 141 MEQ/L (136-145)
[2017-06-16 08:42] LABS: ALKALINE PHOSPHATASE 53 U/L (45-117); TOTAL BILIRUBIN ADULT 0.6 MG/DL (0.2-1.0); TOTAL PROTEIN 7.4 GM/DL (6.4-8.2)
[2017-06-16] MEDS: NICOTINE 21 MG/24 HR PATCH T-DERMAL SCH (08:59)
[2017-06-16] MEDS: SERTRALINE HCL 50 MG TAB PO SCH (08:59)
[2017-06-16] MEDS: ALUMINUM/MAGNESIUM/SIMETH 30 ML CUP PO PRN ×2 (09:09→17:52)
--- NOTE | 2017-06-16 16:13 | HHI.PYPN ---
Subjective Remarks Patient was seen and case discussed with nursing. We talked at length about his suicide attempt. Supportive therapy was provided during the interview. Patient has guilty feelings about being a bad . He says he has ready for times with his and feels like this may be it. He has not had any contact with her. Denies a history of other suicide attempts. Today, patient says he feels more hopeful for the future and envisions himself having a life in accomplishing his goals. He denies suicidal or homicidal ideation intent or plan. He is social with others. Eating and sleeping well. Mental Status Examination Appearance: Appropriate Consciousness: Alert Orientation: x4 Motor Activity: Normal gait Speech: Unremarkable Language: Adequate Fund of Knowledge: Inadequate Attention and Concentration: Adequate Memory: Unremarkable Mood: Sad Affect: Other (Tearful) Thought Process & Associations: Linear Thought Content: Appropriate Hallucination Type: None Delusion Type: None Suicidal Ideation: No Suicidal Plan: No Suicidal Intention: No Homicidal Ideation: No Homicidal Plan: No Homicidal Intention: No Insight: Poor Judgment: Poor Results Labs Test 06/16/17 07:26 Blood Urea Nitrogen 13 MG/DL Creatinine 0.89 MG/DL Random Glucose 91 MG/DL Total Protein 7.4 GM/DL Albumin 3.6 GM/DL Calcium Level 9.4 MG/DL Alkaline Phosphatase 53 U/L Aspartate Amino Transf (AST/SGOT) 50 U/L Alanine Aminotransferase (ALT/SGPT) 462 U/L Total Bilirubin 0.6 MG/DL Sodium Level 141 MEQ/L Potassium Level 4.3 MEQ/L Chloride Level 104 MEQ/L Carbon Dioxide Level 29.6 MEQ/L Anion Gap 7 MEQ/L Estimat Glomerular Filtration Rate 105 ML/MIN Vitals/IOs Vital Signs Date Time Temp Pulse Resp B/P (MAP) Pulse Ox O2 Delivery O2 Flow Rate FiO2 06/16/17 06:27 97.8 82 18 133/70 (91) 96 06/12/17 08:00 21 Intake and Output 06/16/17 06/16/17 06/17/17 08:00 16:00 00:00 Intake Total 240 ml 360 ml Balance 240 ml 360 ml Assessment & Plan Problem List: (1) Major depressive disorder, single episode ICD Codes: F32.9 - Major depressive disorder, single episode, unspecified Status: Acute Assessment & Plan Continue current treatment plan Justification for Cont. Inpt. Patient would decompensate in a less restrictive setting Problem Qualifiers (1) Major depressive disorder, single episode: Qualified Codes: F32.2 - Major depressive disorder, single episode, severe without psychotic features Lukas Adkins DO June 16, 2017 16:13
[2017-06-16 18:00] VITALS: BP 159/85; PULSE 87; RESP 18; TEMP 98.1; O2SAT 97
[2017-06-16] MEDS ORDERED: PANTOPRAZOLE SOD 40 MG DELAYED RELEASE TAB PO ONE (19:00)
[2017-06-16] MEDS: REMOVE OLD NICODERM (NICOTINE) PATCH T-DERMAL SCH (21:00)
[2017-06-17 06:00] VITALS: BP 166/79; PULSE 94; RESP 18; TEMP 98.1; O2SAT 97
[2017-06-17] MEDS: PANTOPRAZOLE SOD 40 MG DELAYED RELEASE TAB PO SCH (08:39)
[2017-06-17] MEDS: SERTRALINE HCL 50 MG TAB PO SCH (08:39)
[2017-06-17] MEDS: NICOTINE 21 MG/24 HR PATCH T-DERMAL SCH (08:40)
--- NOTE | 2017-06-17 15:32 | HHI.PYPN ---
Subjective Remarks Patient was seen and case discussed with nursing. Patient had a disturbing dream where he and his had a baby. Nursing said he was quite bothered by this but patient minimizes it during the interview. Patient says he is feeling "much better." Was asking about discharge. Affect remains blunted and mood depressed. Denies suicidal or homicidal ideation intent or plan. No contact with Mental Status Examination Appearance: Appropriate Consciousness: Alert Orientation: x4 Motor Activity: Normal gait Speech: Unremarkable Language: Adequate Fund of Knowledge: Inadequate Attention and Concentration: Adequate Memory: Unremarkable Mood: Sad Affect: Other (Tearful) Thought Process & Associations: Linear Thought Content: Appropriate Hallucination Type: None Delusion Type: None Suicidal Ideation: No Suicidal Plan: No Suicidal Intention: No Homicidal Ideation: No Homicidal Plan: No Homicidal Intention: No Insight: Poor Judgment: Poor Results Vitals/IOs Vital Signs Date Time Temp Pulse Resp B/P (MAP) Pulse Ox O2 Delivery O2 Flow Rate FiO2 06/17/17 06:00 98.1 94 18 166/79 (108) 97 Intake and Output 06/17/17 06/17/17 06/18/17 08:00 16:00 00:00 Intake Total 240 ml 240 ml Balance 240 ml 240 ml Assessment & Plan Problem List: (1) Major depressive disorder, single episode ICD Codes: F32.9 - Major depressive disorder, single episode, unspecified Status: Acute Assessment & Plan Continue current treatment plan Justification for Cont. Inpt. Patient would decompensate in a less restrictive setting Problem Qualifiers (1) Major depressive disorder, single episode: Qualified Codes: F32.2 - Major depressive disorder, single episode, severe without psychotic features Lukas Adkins DO June 17, 2017 15:32
[2017-06-17 18:13] VITALS: BP 142/66; PULSE 89; RESP 18; TEMP 98.6; O2SAT 97
[2017-06-17] MEDS: REMOVE OLD NICODERM (NICOTINE) PATCH T-DERMAL SCH (21:00)
[2017-06-18 06:18] VITALS: BP 116/58; PULSE 59; RESP 17; TEMP 97.9; O2SAT 97
[2017-06-18] MEDS: PANTOPRAZOLE SOD 40 MG DELAYED RELEASE TAB PO SCH (08:23)
[2017-06-18] MEDS: NICOTINE 21 MG/24 HR PATCH T-DERMAL SCH (08:24)
[2017-06-18] MEDS: SERTRALINE HCL 50 MG TAB PO SCH (08:24)
[2017-06-18] MEDS ORDERED: PANT40TA3 PO (10:14)
[2017-06-18] MEDS ORDERED: ZOLO50TA PO (10:14)
--- NOTE | 2017-06-18 10:14 | HHI.DS ---
Psychiatry Discharge Summary Inpatient Psychiatric care?: Yes Advance Directive: No Reason Not Provided: info given Mental Health AdvanceDirective: No Health Care Proxy: No Admission Admission Date June 12, 2017 at 14:14 Admission Diagnosis: (1) Major depressive disorder, single episode ICD Code: F32.9 - Major depressive disorder, single episode, unspecified Brief History Patient is a 25-year-old man, but currently , unemployed, with a past psychiatric history, discharge, he explained some of previous diagnosis of ADHD as a child, no previous psychiatric admissions, no previous suicide attempts or self-injurious behavior, no substance use history, who was recently admitted to the medical floor status post overdose with Tylenol in a suicide attempt, stabilized in ICU and now transferred to the inpatient psychiatry unit patient for further evaluation and management. Consulted to me for second opinion. I met the patient earlier when he was admitted in the ICU. On evaluation today he seems to be doing better. He is happy that he did not need a liver transplant. Patient is quite focused and be discharged. Seems to be poorly insightful about his recent stressors and situation. He denies suicidal and was ideation, he denies visual and auditory hallucinations. Tobacco Use In Past 30 Days: No Tobacco Past 30 Days Alcohol Use: 2-4 Times Per Month Hospital Course Patient is a 25-year-old man, but currently , unemployed, with a past psychiatric history, discharge, he explained some of previous diagnosis of ADHD as a child, no previous psychiatric admissions, no previous suicide attempts or self-injurious behavior, no substance use history, who was recently admitted to the medical floor status post overdose with Tylenol in a suicide attempt, stabilized in ICU and now transferred to the inpatient psychiatry unit patient for further evaluation and management. Patient was started on sertraline and titrated up to 50mg PO daily, which he tolerated well with no noted side effects. Patient continued to endorse feeling depressed and denying any suicidal ideations during hospitalization but began to have improvement in mood achieving stabilization. Patient was adherent to medication regimen and recommendations as per primary medical team was noted with participation with staff and in groups and activities. Upon discharge patient stated feeling good, stated feeling okay with returning back to his home with his sister; noted to be calm and cooperative with staff. He agreed to continuing medical recommendations, treatment and cooperate for continuity of care. Patient; denies SI, HI, AVH or delusions. Supportive psychotherapy provided. Suicide and violence risk assessment on day of discharge both suggest lower imminent risk, and the patient's level of function is adequate for planned level of outpatient care. Patient has maximized benefit from this inpatient psychiatric hospital stay and to return to psychiatric emergency room for any concerning psychiatric symptoms. Patient agrees with plan. Results Blood Pressure 116 / 58 Vital Signs Date Time Temp Pulse Resp B/P (MAP) Pulse Ox O2 Delivery O2 Flow Rate FiO2 06/18/17 06:18 97.9 59 17 116/58 (77) 97 Laboratory Tests Test 06/16/17 07:26 Aspartate Amino Transf (AST/SGOT) 50 U/L (15-37) Alanine Aminotransferase (ALT/SGPT) 462 U/L (12-78) Laboratory Results Test 06/13/17 05:47 Cholesterol Level 102 MG/DL (120-200) HDL Cholesterol 14.1 MG/DL (40.0-60.0) Hemoglobin A1c 5.2 % (4.3-6.0) LDL Cholesterol 55 MG/DL (0-99) Triglycerides Level 163 MG/DL (42-150) Summary of Procedures none Pending results at discharge: No Medications # of Antipsychotic meds at D/C: 0 Approp Antipsych med options 1 - Minimum of three failed multiple trials of monotherapy. 2 - Documented plan to taper to monotherapy due to previous use of multiple meds OR cross-taper in progress at D/C. 3 - Documentation of augmentation of Clozapine. 4 - Justification other than those listed in allowable values 1-3, document here : Discharge Discharge Date: June 18, 2017 Discharge Diagnosis: (1) Major depressive disorder, single episode ICD Code: F32.9 - Major depressive disorder, single episode, unspecified Status: Acute Pt Condition on Discharge: Stable Discharge Disposition: Discharge Home Discharge Instructions Diet Instructions: Heart Healthy Diet Activities you can perform: Regular-No Restrictions Discharge Time > 30 minutes Mental Status Examination Appearance: Appropriate Consciousness: Alert Orientation: x4 Motor Activity: Normal gait Speech: Unremarkable Language: Adequate Fund of Knowledge: Inadequate Attention and Concentration: Adequate Memory: Unremarkable Mood: Appropriate Affect: Appropriate Thought Process & Associations: Intact, Goal directed, Linear Thought Content: Appropriate Hallucination Type: None Delusion Type: None Suicidal Ideation: No Suicidal Plan: No Suicidal Intention: No Homicidal Ideation: No Homicidal Plan: No Homicidal Intention: No Insight: Adequate Judgment: Adequate Discharge/Advance Care Plan Health Problems: (1) Major depressive disorder, single episode Goals to promote your health * To prevent worsening of your condition and complications * To maintain your health at the optimal level Directions to meet your goals Take your medications as prescribed Follow your dietary instruction Follow activity as directed Keep your appointments as scheduled Take your immunizations and boosters as scheduled If your symptoms worsen call your PCP, if no PCP go to Urgent Care Center or Emergency Room For 04/09 questions related to your inpatient stay or results of tests pending at discharge, please contact Dr. Mario Stanley at Smoking is Dangerous to Your Health. Avoid second hand smoking Problem Qualifiers (1) Major depressive disorder, single episode: Qualified Codes: F32.2 - Major depressive disorder, single episode, severe without psychotic features Mario Stanley MD June 18, 2017 10:14
--- NOTE | 2017-06-18 10:35 | PD.TTN ---
Patient Problems 1. Discharge planning 2. Medication compliance 3. Knowledge deficit 4. Lack of coping skills Progress Toward Goals Provider Present: Dr. Santosh Stanley Provider Input: Dr. Stanley had his treatment team meeting to discuss patient's medication, discharge and treatment plan. Patient is doing well will be discharged home with sister. Nurse(s) Input: Patient's nurse reports patient is doing well. Medication compliant. Psychiatric Counselors Present: Andressa Segal [facility] Psych Therapist Input: Patient presented calm, pleasant, cooperative, affect appropriate. Patient denies suicidal and homicidal ideation. Patient made good eye contact. Patient will follow up with Claire Gallardo from [facility] and Dr. Lewis. Patient will drive himself home. Group Spec/RT/OT/QUIÑONEZ Present: KHANG Sykes Group Spec/RT/OT/QUIÑONEZ Input: Patient attends groups appropriately. Andressa Segal [facility] June 18, 2017 10:35
== END 2017-06-18 11:30 | disposition home or self-care (01) | DRG 885 ==
LOC: H4EA 14:14
PROVIDERS: ADMIT Student in an Organized Health Care Education/Training Program; ATTEND Student in an Organized Health Care Education/Training Program
DX: F32.2 Major depressive disorder, single episode, severe without psychotic features (principal); T39.1X2A Poisoning by 4-Aminophenol derivatives, intentional self-harm, initial encounter; R40.2410 Glasgow coma scale score 13-15, unspecified time
CPT/HCPCS: 80053; 80061; 83036; 84100; J0132; J7070